=== PATIENT | male | born 1960 | race Caucasian/White ===

== ENCOUNTER 2018-07-03 13:11 | Emergency (ER) | payer MEDICARE ==
[2018-07-03 13:16] VITALS: BP 135/73; PULSE 69; RESP 18; TEMP 97.8
--- NOTE | 2018-07-03 14:06 | ED ---
General Adult HPI - General Chief complaint: Extremity Injury, Upper Stated complaint: Arm Pain Time Seen by Provider: 07/03/18 13:31 Source: patient Mode of arrival: ambulatory Limitations: no limitations - History of Present Illness Initial comments: Patient is a 57-year-old male who presents to the ER with complaints of right lower arm pain. He stated that he was carrying a bucket of rocks yesterday when he felt a pop and sudden pain in his right arm. He states that he takes oxycodone at home for back pain and that it has not been helping with his arm pain. He also complains of tingling and weakness in his right hand. Denies numbness. - Related Data Previous Rx's Medication Instructions Recorded Ibuprofen [Motrin] 600 mg PO Q6HR PRN #20 day 07/03/18 Allergies Allergy/AdvReac Type Severity Reaction Status Date / Time Sulfa (Sulfonamide Allergy Swelling Verified 07/03/18 13:16 Antibiotics) Review of Systems ROS Statement: Those systems with pertinent positive or pertinent negative responses have been documented in the HPI. ROS Other: All systems not noted in ROS Statement are negative. Past Medical History Past Medical History: Diabetes Mellitus, Hypertension Additional Past Medical History / Comment(s): chronic back pain History of Any Multi-Drug Resistant Organisms: None Reported Past Surgical History: Orthopedic Surgery Additional Past Surgical History / Comment(s): right knee surgery Past Psychological History: Anxiety, Depression Smoking Status: Former smoker Past Alcohol Use History: None Reported Past Drug Use History: None Reported General Exam - General Exam Comments Initial Comments: General: The patient is awake and alert, in no distress, and does not appear acutely ill. Neck: The neck is supple. Cardiovascular: There is a regular rate and rhythm. Radial pulses are 2+ bilaterally. Capillary refill of upper extremities less than 2 seconds bilaterally. Respiratory: Lungs are clear to auscultation, respirations are non-labored, breath sounds are equal. No wheezes, stridor, rales, or rhonchi. Musculoskeletal: There is a small bruise over the anterior aspect of the right lower arm; skin color is otherwise normal. There are no obvious deformities of the upper extremities. Right wrist ROM in flexion and extension slightly decreased compared to the left. 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 Sensation is intact. Neurological: A&O x 3. Coordination appears grossly intact. Speech is normal. Skin: Skin is warm and dry. Psychiatric: Normal mood and affect. Limitations: no limitations Course Vital Signs 07/03/18 13:13 Temperature 97.8 F Pulse Rate 69 Respiratory 18 Rate Blood Pressure 135/73 O2 Sat by Pulse 95 Oximetry Medical Decision Making - Medical Decision Making Patient presented with right forearm pain and tingling and weakness in the right hand. Injury is likely muscular or tendon related. It is unlikely that there is injury to the bone. This was discussed with the patient and the patient did not wish to have an x-ray. Patient advised to follow up with orthopedics within the next 2 days. Patient was given a prescription for ibuprofen. Disposition Clinical Impression: Forearm pain Disposition: HOME SELF-CARE Condition: Good Instructions: Arm Pain (ED) Additional Instructions: Follow-up with orthopedics in the next 2 days use ibuprofen as directed. Use ice and elevate arm as needed. Return to the emergency room for any further concerns. Prescriptions: Ibuprofen [Motrin] 600 mg PO Q6HR PRN #20 day PRN Reason: Pain Is patient prescribed a controlled substance at d/c from ED?: No Referrals: Elvin Hyde MD [Primary Care Provider] - 1-2 days Vin Han MD [STAFF PHYSICIAN] - 1-2 days Time of Disposition: 14:22
== END 2018-07-03 14:28 | disposition home or self-care (01) ==
LOC: EC 13:11
DX: S50.11XA Contusion of right forearm, initial encounter (principal); R20.2 Paresthesia of skin; R29.898 Other symptoms and signs involving the musculoskeletal system; Z87.891 Personal history of nicotine dependence; Z88.2 Allergy status to sulfonamides; X50.0XXA Overexertion from strenuous movement or load, initial encounter; Y92.009 Unspecified place in unspecified non-institutional (private) residence as the place of occurrence of the external cause
CPT/HCPCS: 99283

== ENCOUNTER 2018-12-16 11:10 | Emergency (ER) | payer MEDICARE ==
[2018-12-16 11:36] VITALS: TEMP 98.4
[2018-12-16] MEDS ORDERED: HYDROmorphone 1 MG/ML 1 ML SYRINGE IM STA (12:30)
--- NOTE | 2018-12-16 12:34 | ED ---
Fall HPI - General Chief Complaint: Fall Stated Complaint: fall/back pain Time Seen by Provider: 12/16/18 12:16 Source: patient, RN notes reviewed, old records reviewed Mode of arrival: ambulatory - History of Present Illness Initial Comments: Patient is 58-year-old male presents [place] today with chief complaint of back pain related to fall. Patient reports his history of chronic dental issues. Sees neurologist Dr. Arellano. He is on oxycodone 3 times a day. Patient states that yesterday while to Dr. Parsons was standing and fell. - Related Data Home Medications Medication Instructions Recorded Confirmed Amitriptyline HCl [Elavil] 50 mg PO BID 12/16/18 12/16/18 Aspirin EC [Ecotrin Low Dose] 81 mg PO DAILY 12/16/18 12/16/18 Atorvastatin [Lipitor] 20 mg PO HS 12/16/18 12/16/18 Cholecalciferol (Vitamin D3) 2,000 unit PO DAILY 12/16/18 12/16/18 [Vitamin D3] DULoxetine HCL [Cymbalta] 120 mg PO DAILY 12/16/18 12/16/18 Gabapentin 800 mg PO TID 12/16/18 12/16/18 Gemfibrozil [Lopid] 600 mg PO AC-BID 12/16/18 12/16/18 Insulin Detemir (Levemir) [Levemir] 35 unit SQ BID 12/16/18 12/16/18 Levothyroxine Sodium [Synthroid] 50 mcg PO DAILY 12/16/18 12/16/18 Pioglitazone [Actos] 30 mg PO DAILY 12/16/18 12/16/18 QUEtiapine [SEROquel] 100 mg PO BID 12/16/18 12/16/18 Sertraline [Zoloft] 100 mg PO BID 12/16/18 12/16/18 Spironolactone 100 mg PO DAILY 12/16/18 12/16/18 Tamsulosin [Flomax] 0.8 mg PO DAILY 12/16/18 12/16/18 Testosterone Cypionate 120 mg IM Q7D 12/16/18 12/16/18 [Depo-Testosterone] Umeclidinium Brm/Vilanterol Tr 1 puff INHALATION RT-DAILY 12/16/18 12/16/18 [Anoro Ellipta 62.5-25 Mcg INH] amLODIPine [Norvasc] 10 mg PO DAILY 12/16/18 12/16/18 cloNIDine HCL [Catapres] 0.1 mg PO TID 12/16/18 12/16/18 hydrALAZINE HCL [Apresoline] 25 mg PO QID 12/16/18 12/16/18 metFORMIN HCL 1,000 mg PO BID 12/16/18 12/16/18 oxyCODONE-APAP 10-325MG [Percocet 1 tab PO TID PRN 12/16/18 12/16/18 10-325 mg] Allergies Allergy/AdvReac Type Severity Reaction Status Date / Time Sulfa (Sulfonamide Allergy Swelling Verified 12/16/18 13:09 Antibiotics) Review of Systems ROS Statement: Those systems with pertinent positive or pertinent negative responses have been documented in the HPI. ROS Other: All systems not noted in ROS Statement are negative. Past Medical History Past Medical History: Diabetes Mellitus, Hypertension Additional Past Medical History / Comment(s): chronic back pain History of Any Multi-Drug Resistant Organisms: None Reported Past Surgical History: Orthopedic Surgery Additional Past Surgical History / Comment(s): right knee surgery Past Psychological History: Anxiety, Depression Smoking Status: Former smoker Past Alcohol Use History: None Reported Past Drug Use History: None Reported General Exam Limitations: no limitations General appearance: alert, in no apparent distress Head exam: Present: atraumatic, normocephalic, normal inspection Eye exam: Present: normal appearance, PERRL, EOMI. Absent: scleral icterus, conjunctival injection, periorbital swelling ENT exam: Present: normal exam, mucous membranes moist Neck exam: Present: normal inspection. Absent: tenderness, meningismus, lymphadenopathy Respiratory exam: Present: normal lung sounds bilaterally. Absent: respiratory distress, wheezes, rales, rhonchi, stridor Cardiovascular Exam: Present: regular rate, normal rhythm, normal heart sounds. Absent: systolic murmur, diastolic murmur, rubs, gallop, clicks GI/Abdominal exam: Present: soft, normal bowel sounds. Absent: distended, tenderness, guarding, rebound, rigid Extremities exam: Present: normal inspection, full ROM, normal capillary refill. Absent: tenderness, pedal edema, joint swelling, calf tenderness Back exam: Present: normal inspection Neurological exam: Present: alert, oriented X3, CN II-XII intact Course Vital Signs 12/16/18 11:33 Temperature 98.4 F Pulse Rate 65 Respiratory 18 Rate Blood Pressure 147/78 O2 Sat by Pulse 95 Oximetry Medical Decision Making - Lab Data Lab Results 12/16/18 Range/Units 14:00 Urine Color Light Yellow Urine Appearance Clear (Clear) Urine pH 6.0 (5.0-8.0) Ur Specific New Site 1.011 (1.001-1.035) Urine Protein Negative (Negative) Urine Glucose (UA) 4+ H (Negative) Urine Ketones Negative (Negative) Urine Blood Negative (Negative) Urine Nitrite Negative (Negative) Urine Bilirubin Negative (Negative) Urine Urobilinogen <2.0 (<2.0) mg/dL Ur Leukocyte Esterase Negative (Negative) Disposition Clinical Impression: Fall, Mechanical back pain Disposition: HOME SELF-CARE Condition: Good Instructions (If sedation given, give patient instructions): Back Pain (ED) Additional Instructions: Follow-up with PCP. Take medication as prescribed. Return to the emergency department if any alarming signs or symptoms occur. Is patient prescribed a controlled substance at d/c from ED?: No Referrals: Elvin Hyde MD [Primary Care Provider] - 1-2 days Time of Disposition: 14:41
[2018-12-16] MEDS ORDERED: HYDROmorphone 1 MG/ML 1 ML SYRINGE IVP STA ×2 (13:14→14:41)
--- NOTE | 2018-12-16 13:47 | XR ---
EXAMINATION TYPE: XR chest 2V DATE OF EXAM: 12/16/2018 COMPARISON: NONE HISTORY: Chest pain after fall injury. TECHNIQUE: Frontal and lateral views of the chest are obtained. FINDINGS: There is elevation and eventration of anterior aspect right hemidiaphragm noted. There is n o focal air space opacity, pleural effusion, or pneumothorax seen. The cardiac silhouette size is wi thin normal limits. Multilevel spurring in the thoracic spine is present. IMPRESSION: No acute cardiopulmonary process.
--- NOTE | 2018-12-16 14:00 | XR ---
EXAMINATION TYPE: XR lumbar spine 2 or 3V DATE OF EXAM: 12/16/2018 CLINICAL HISTORY: Low back pain after fall injury TECHNIQUE: Frontal and lateral images of the lumbar spine are obtained. COMPARISON: None FINDINGS: There are 5 lumbar type vertebral bodies identified. The lumbar spine shows satisfactory alignment without evidence of acute fracture or dislocation. Vertebral body heights and disk space he ights are within normal limits. Mild multilevel anterior and lateral spurring is present. Mild vascul ar calcification overlying abdominal aorta is noted. IMPRESSION: No acute fracture or dislocation is seen in the lumbar spine.
--- NOTE | 2018-12-16 14:01 | XR ---
EXAMINATION TYPE: XR thoracic spine 2V DATE OF EXAM: 12/16/2018 CLINICAL HISTORY: Fall with mid back pain. TECHNIQUE: Frontal, lateral, and swimmer's view of thoracic spine are obtained. COMPARISON: None. FINDINGS: Thoracic spine show satisfactory alignment without evidence of acute fracture or dislocatio n. Vertebral body heights and disc space heights are preserved. Moderate multilevel anterior and lat eral spurring most prominent mid to lower thoracic spine is noted. Visualized ribs are unremarkable b ilaterally. IMPRESSION: No acute fracture or dislocation is seen in the thoracic spine.
[2018-12-16 14:35] LABS: Appearance,Urine Clear (Clear); Bilirubin,Urine Negative (Negative); Blood,Urine Negative (Negative); Color,Urine Light Yellow; Glucose,Urine (UA) 4+ (Negative); Ketones,Urine Negative (Negative); Leukocyte Esterase,Urine Negative (Negative); Nitrite,Urine Negative (Negative); Protein,Urine Negative (Negative); Specific Gravity,Urine 1.011 (1.001-1.035); Urobilinogen,Urine <2.0 mg/dL (<2.0)
[2018-12-16 14:59] VITALS: BP 167/89; PULSE 59; RESP 16
== END 2018-12-16 14:55 | disposition home or self-care (01) ==
LOC: EC 11:10
DX: M54.9 Dorsalgia, unspecified (principal); E11.9 Type 2 diabetes mellitus without complications; I10 Essential (primary) hypertension; F41.9 Anxiety disorder, unspecified; F32.9 Major depressive disorder, single episode, unspecified; Z87.891 Personal history of nicotine dependence; Z98.890 Other specified postprocedural states; Z79.4 Long term (current) use of insulin; Z79.82 Long term (current) use of aspirin; Z79.890 Hormone replacement therapy; Z79.899 Other long term (current) drug therapy; Z88.2 Allergy status to sulfonamides; W19.XXXA Unspecified fall, initial encounter; Y92.89 Other specified places as the place of occurrence of the external cause
CPT/HCPCS: 81003; 72070; 72100; 71046; 99284; 96374; 96376; J1170

== ENCOUNTER 2019-07-28 02:21 | Emergency (ER) | payer MEDICARE ==
[2019-07-28 02:29] VITALS: TEMP 97.5
[2019-07-28] MEDS ORDERED: DIPH,PERTUS(ACELL)TETVAC-LF 0.5 ML VIAL IM ONE (02:58)
--- NOTE | 2019-07-28 03:19 | XR ---
EXAMINATION TYPE: XR nasal bone DATE OF EXAM: 07/28/2019 COMPARISON: NONE HISTORY: Fall. Pain. TECHNIQUE: 3 views FINDINGS: Bone appears intact. Maxillary spine is intact. There is intact orbital margins. There is normal aera tion of the paranasal sinuses. IMPRESSION: Normal nasal bone exam.
--- NOTE | 2019-07-28 03:25 | CT ---
EXAMINATION TYPE: CT brain wo con DATE OF EXAM: 07/28/2019 COMPARISON: None HISTORY: laceration to nose after fall. CT DLP: 1087.4 mGycm Automated exposure control for dose reduction was used. FINDINGS: Ventricles appear normal. There is no mass effect nor midline shift. There is no sign of intracranial hemorrhage. There is mild cerebral cortical atrophy. Calvarium is intact. There is some mucosal thic kening in the ethmoid air cells. Nasal bone that is visualized appears intact. IMPRESSION: MILD ATROPHY. NO ACUTE INTRACRANIAL ABNORMALITY. ETHMOID SINUSITIS.
[2019-07-28] MEDS ORDERED: OXYMETAZOLINE 0.05% NASL SPRAY 1 SPRAY BOTTLE NASAL STA (03:47)
[2019-07-28 04:09] VITALS: BP 125/58; PULSE 73; RESP 18
--- NOTE | 2019-07-28 04:36 | ED ---
Fall HPI - General Chief Complaint: Fall Stated Complaint: Fall,Head Injury Time Seen by Provider: 07/28/19 02:25 Source: patient Mode of arrival: wheelchair - History of Present Illness Initial Comments: This patient is 59-year-old man who presents to be evaluated after he had a fall. The patient was at home in his bathroom. He states that he was attempting to stand up and his foot slipped resulting in him falling and striking his nose against the rack. There is no loss consciousness. Patient does complain of headache and some nasal tenderness. He did not have epistaxis. He does state that he feels a little congested in the nose. No neck pain. MD Complaint: fall -: minutes(s) Fall From: standing When Fall Occurred: just prior to arrival Place Fall Occurred: home Loss of Consciousness: none Prolonged Down Time?: no Location: head, face Severity: moderate Context: tripped/slipped Associated Symptoms: headache - Related Data Home Medications Medication Instructions Recorded Confirmed Amitriptyline HCl [Elavil] 50 mg PO BID 12/16/18 07/28/19 Aspirin EC [Ecotrin Low Dose] 81 mg PO DAILY 12/16/18 07/28/19 Atorvastatin [Lipitor] 20 mg PO HS 12/16/18 07/28/19 Cholecalciferol (Vitamin D3) 2,000 unit PO DAILY 12/16/18 07/28/19 [Vitamin D3] DULoxetine HCL [Cymbalta] 120 mg PO DAILY 12/16/18 07/28/19 Gabapentin 800 mg PO TID 12/16/18 07/28/19 Gemfibrozil [Lopid] 600 mg PO AC-BID 12/16/18 07/28/19 Insulin Detemir (Levemir) [Levemir] 35 unit SQ BID 12/16/18 07/28/19 Levothyroxine Sodium [Synthroid] 50 mcg PO DAILY 12/16/18 07/28/19 Pioglitazone [Actos] 30 mg PO DAILY 12/16/18 07/28/19 QUEtiapine [SEROquel] 100 mg PO BID 12/16/18 07/28/19 Sertraline [Zoloft] 100 mg PO BID 12/16/18 07/28/19 Spironolactone 100 mg PO DAILY 12/16/18 07/28/19 Tamsulosin [Flomax] 0.8 mg PO DAILY 12/16/18 07/28/19 Testosterone Cypionate 120 mg IM Q7D 12/16/18 07/28/19 [Depo-Testosterone] Umeclidinium Brm/Vilanterol Tr 1 puff INHALATION RT-DAILY 12/16/18 07/28/19 [Anoro Ellipta 62.5-25 Mcg INH] amLODIPine [Norvasc] 10 mg PO DAILY 12/16/18 07/28/19 cloNIDine HCL [Catapres] 0.1 mg PO TID 12/16/18 07/28/19 hydrALAZINE HCL [Apresoline] 25 mg PO QID 12/16/18 07/28/19 metFORMIN HCL 1,000 mg PO BID 12/16/18 07/28/19 oxyCODONE-APAP 10-325MG [Percocet 1 tab PO TID PRN 12/16/18 07/28/19 10-325 mg] Allergies Allergy/AdvReac Type Severity Reaction Status Date / Time Sulfa (Sulfonamide Allergy Swelling Verified 12/16/18 13:09 Antibiotics) Review of Systems ROS Statement: Those systems with pertinent positive or pertinent negative responses have been documented in the HPI. ROS Other: All systems not noted in ROS Statement are negative. Constitutional: Denies: fever, chills Eyes: Denies: eye pain, vision change ENT: Reports: congestion. Denies: ear pain, throat pain, epistaxis Respiratory: Denies: cough, dyspnea Cardiovascular: Denies: chest pain, syncope Gastrointestinal: Denies: abdominal pain, vomiting Musculoskeletal: Denies: back pain Neurological: Denies: headache Hematological/Lymphatic: Denies: easy bleeding Past Medical History Past Medical History: Diabetes Mellitus, Hypertension Additional Past Medical History / Comment(s): chronic back pain History of Any Multi-Drug Resistant Organisms: None Reported Past Surgical History: Orthopedic Surgery Additional Past Surgical History / Comment(s): right knee surgery Past Psychological History: Anxiety, Depression Smoking Status: Former smoker Past Alcohol Use History: None Reported Past Drug Use History: None Reported General Exam Limitations: no limitations General appearance: alert, in no apparent distress Head exam: Present: normocephalic Eye exam: Present: normal appearance, PERRL, EOMI. Absent: scleral icterus, conjunctival injection, nystagmus ENT exam: Present: normal oropharynx, mucous membranes moist, TM's normal bilaterally, normal external ear exam, other (Patient has approximately 1.5 cm laceration to the bridge of the nose which is stellate.) Neck exam: Present: normal inspection, full ROM. Absent: tenderness Respiratory exam: Present: normal lung sounds bilaterally. Absent: respiratory distress, wheezes, rales, rhonchi, stridor Cardiovascular Exam: Present: regular rate, normal rhythm, normal heart sounds. Absent: systolic murmur, diastolic murmur, rubs, gallop GI/Abdominal exam: Present: soft. Absent: tenderness Extremities exam: Present: normal inspection, normal capillary refill. Absent: pedal edema, calf tenderness Back exam: Present: normal inspection. Absent: vertebral tenderness Neurological exam: Present: alert, oriented X3, CN II-XII intact. Absent: motor sensory deficit Skin exam: Present: warm, dry, normal color. Absent: rash Course Vital Signs 07/28/19 07/28/19 02:26 04:07 Temperature 97.5 F L Pulse Rate 64 73 Respiratory 20 18 Rate Blood Pressure 128/69 125/58 O2 Sat by Pulse 95 96 Oximetry Procedures - Laceration Laceration #1 Consent Obtained: verbal consent Indication: laceration Site: face Size (cm): 2 Description: stellate Depth: simple, single layer Anesthetic Used: lidocaine 1% Anesthesia Technique: local infiltration Type of Sutures: nylon Size of Sutures: 6-0 Number of Sutures: 2 Technique: simple, interrupted Patient Tolerated Procedure: well, no complications Disposition Clinical Impression: Fall, Facial laceration Disposition: HOME SELF-CARE Condition: Good Instructions (If sedation given, give patient instructions): Laceration (ED), Fall Prevention for Older Adults (ED) Is patient prescribed a controlled substance at d/c from ED?: No Referrals: Elvin Hyde MD [Primary Care Provider] - 1-2 days
[2019-07-28] MEDS ORDERED: LIDOCAINE 1% INJ 10MG/ML (20 ML MDV) SQ ONE (04:41)
== END 2019-07-28 05:04 | disposition home or self-care (01) ==
LOC: EC 02:21
DX: S01.21XA Laceration without foreign body of nose, initial encounter (principal); Z23 Encounter for immunization; I10 Essential (primary) hypertension; E11.9 Type 2 diabetes mellitus without complications; F41.9 Anxiety disorder, unspecified; F32.9 Major depressive disorder, single episode, unspecified; Z79.82 Long term (current) use of aspirin; Z79.4 Long term (current) use of insulin; Z79.890 Hormone replacement therapy; Z79.899 Other long term (current) drug therapy; Z88.2 Allergy status to sulfonamides; Z87.891 Personal history of nicotine dependence; W01.198A Fall on same level from slipping, tripping and stumbling with subsequent striking against other object, initial encounter
CPT/HCPCS: 70160; 70450; 90715; 99284; 90471; 12011; J2001

== ENCOUNTER 2019-12-17 14:25 | Emergency (ER) | payer MEDICARE ==
[2019-12-17] MEDS ORDERED: HYDROmorphone 1 MG/ML 1 ML SYRINGE IVP STA (14:31)
[2019-12-17 14:58] VITALS: RESP 18
--- NOTE | 2019-12-17 15:10 | ED ---
Lower Extremity Injury HPI - General Stated Complaint: Slip and fall/right knee injury Time Seen by Provider: 12/17/19 14:30 Source: patient, EMS, RN notes reviewed Mode of arrival: EMS Limitations: physical limitation - History of Present Illness Initial Comments: This a 59-year-old male presents emergency department via EMS chief complaint of right knee pain. Patient states that he was walking into [employer] states he went to work this feel states he twisted his knee falling to the ground. Patient complains of severe right knee pain. Denies any hip, ankle pain and also states that he has some increasing back pain which is his normal chronic issue. Patient denies any bowel bladder incontinence or retention. Denies any head injury no loss conscious. Patient was given fentanyl by EMS. - Related Data Home Medications Medication Instructions Recorded Confirmed Amitriptyline HCl [Elavil] 50 mg PO BID 12/16/18 07/28/19 Aspirin EC [Ecotrin Low Dose] 81 mg PO DAILY 12/16/18 07/28/19 Atorvastatin [Lipitor] 20 mg PO HS 12/16/18 07/28/19 Cholecalciferol (Vitamin D3) 2,000 unit PO DAILY 12/16/18 07/28/19 [Vitamin D3] DULoxetine HCL [Cymbalta] 120 mg PO DAILY 12/16/18 07/28/19 Gabapentin 800 mg PO TID 12/16/18 07/28/19 Gemfibrozil [Lopid] 600 mg PO AC-BID 12/16/18 07/28/19 Insulin Detemir (Levemir) [Levemir] 35 unit SQ BID 12/16/18 07/28/19 Levothyroxine Sodium [Synthroid] 50 mcg PO DAILY 12/16/18 07/28/19 Pioglitazone [Actos] 30 mg PO DAILY 12/16/18 07/28/19 QUEtiapine [SEROquel] 100 mg PO BID 12/16/18 07/28/19 Sertraline [Zoloft] 100 mg PO BID 12/16/18 07/28/19 Spironolactone 100 mg PO DAILY 12/16/18 07/28/19 Tamsulosin [Flomax] 0.8 mg PO DAILY 12/16/18 07/28/19 Testosterone Cypionate 120 mg IM Q7D 12/16/18 07/28/19 [Depo-Testosterone] Umeclidinium Brm/Vilanterol Tr 1 puff INHALATION RT-DAILY 12/16/18 07/28/19 [Anoro Ellipta 62.5-25 Mcg INH] amLODIPine [Norvasc] 10 mg PO DAILY 12/16/18 07/28/19 cloNIDine HCL [Catapres] 0.1 mg PO TID 12/16/18 07/28/19 hydrALAZINE HCL [Apresoline] 25 mg PO QID 12/16/18 07/28/19 metFORMIN HCL 1,000 mg PO BID 12/16/18 07/28/19 oxyCODONE-APAP 10-325MG [Percocet 1 tab PO TID PRN 12/16/18 07/28/19 10-325 mg] Previous Rx's Medication Instructions Recorded Cyclobenzaprine [Flexeril] 10 mg PO TID PRN #15 tab 12/17/19 Allergies Allergy/AdvReac Type Severity Reaction Status Date / Time Sulfa (Sulfonamide Allergy Swelling Verified 12/17/19 14:36 Antibiotics) Review of Systems ROS Statement: Those systems with pertinent positive or pertinent negative responses have been documented in the HPI. ROS Other: All systems not noted in ROS Statement are negative. Past Medical History Past Medical History: Diabetes Mellitus, Hypertension Additional Past Medical History / Comment(s): chronic back pain History of Any Multi-Drug Resistant Organisms: None Reported Past Surgical History: Orthopedic Surgery Additional Past Surgical History / Comment(s): right knee surgery Past Psychological History: Anxiety, Depression Smoking Status: Former smoker Past Alcohol Use History: None Reported Past Drug Use History: None Reported General Exam Limitations: no limitations General appearance: alert, in no apparent distress Head exam: Present: atraumatic, normocephalic, normal inspection Eye exam: Present: normal appearance, PERRL, EOMI. Absent: scleral icterus, conjunctival injection, periorbital swelling Neck exam: Present: normal inspection. Absent: tenderness, meningismus, lymphadenopathy Respiratory exam: Present: normal lung sounds bilaterally. Absent: respiratory distress, wheezes, rales, rhonchi, stridor Cardiovascular Exam: Present: regular rate, normal rhythm, normal heart sounds. Absent: systolic murmur, diastolic murmur, rubs, gallop, clicks Extremities exam: Present: other (Right knee there is mild swelling, limited range of motion secondary to pain is leg is neurovascularly intact there is mild tenderness to anterior surface. There is no hip or ankle tenderness.) Neurological exam: Present: alert, oriented X3, CN II-XII intact Skin exam: Present: warm, dry, intact, normal color. Absent: rash Course Vital Signs 12/17/19 14:32 Temperature 97.8 F Pulse Rate 63 Respiratory 18 Rate Blood Pressure 134/71 O2 Sat by Pulse 94 L Oximetry Medical Decision Making - Medical Decision Making X-rays are negative for acute fracture there is a joint effusion noted on the right. Patient was placed in knee immobilizer follow-up with orthopedics return parameters were discussed. She requested follow-up with [facility]. Disposition Clinical Impression: Right knee sprain, Injury of ligament of right knee Disposition: HOME SELF-CARE Condition: Stable Instructions (If sedation given, give patient instructions): Knee Sprain (ED) Additional Instructions: Please return to the Emergency Department if symptoms worsen or any other concerns. Prescriptions: Cyclobenzaprine [Flexeril] 10 mg PO TID PRN #15 tab PRN Reason: Muscle Spasm Is patient prescribed a controlled substance at d/c from ED?: No Referrals: Elvin Hyde MD [Primary Care Provider] - 1-2 days Dakota Ferro MD [STAFF PHYSICIAN] - 1-2 days Time of Disposition: 16:24
[2019-12-17] MEDS ORDERED: HYDROmorphone 0.5 MG/0.5 ML SYRINGE IVP STA (15:44)
[2019-12-17] MEDS ORDERED: ORPHENADRINE 30 MG/ML 2 ML VIAL IVP STA (15:44)
--- NOTE | 2019-12-17 15:51 | XR ---
Right knee HISTORY: Trauma and pain 3 views of the right knee Bone mineralization, joint spaces and alignment are maintained. There is soft tissue swelling present . Enthesophyte present at the insertion of the quadriceps tendon. Suprapatellar increased density sug gests joint effusion. Vascular calcifications noted incidentally. Spurring present at the posterior p atella. IMPRESSION: No fracture or dislocation. Joint effusion. Mild osteoarthritis.
[2019-12-17 16:34] VITALS: BP 130/76; PULSE 66; TEMP 98
== END 2019-12-17 16:35 | disposition home or self-care (01) ==
LOC: EC 14:25
DX: S83.91XA Sprain of unspecified site of right knee, initial encounter (principal); M54.9 Dorsalgia, unspecified; E11.9 Type 2 diabetes mellitus without complications; I10 Essential (primary) hypertension; G89.29 Other chronic pain; F32.9 Major depressive disorder, single episode, unspecified; F41.9 Anxiety disorder, unspecified; Z87.891 Personal history of nicotine dependence; Z88.2 Allergy status to sulfonamides; Z79.4 Long term (current) use of insulin; Z79.82 Long term (current) use of aspirin; Z79.890 Hormone replacement therapy; Z79.899 Other long term (current) drug therapy; Z98.890 Other specified postprocedural states; W01.0XXA Fall on same level from slipping, tripping and stumbling without subsequent striking against object, initial encounter; Y93.01 Activity, walking, marching and hiking; Y92.89 Other specified places as the place of occurrence of the external cause
CPT/HCPCS: 73562; 99284; 96374; 96375; 96376; L1830; J2360; J1170 ×2

== ENCOUNTER → 2020-01-06 | Outpatient (CLI) | payer MEDICARE ==
--- NOTE | 2020-01-06 11:32 | MR ---
EXAMINATION TYPE: MR knee RT wo con DATE OF EXAM: 01/06/2020 COMPARISON: Left knee x-ray December 29, 2019. HISTORY: Rt knee pain S/P fall 3 weeks ago TECHNIQUE: Multiplanar, multisequence images of the knee is performed without IV contrast. FINDINGS: MEDIAL MENISCUS: Medial extrusion medial meniscus. Anterior horn is intact without tear. Posterior ho rn is truncated with abnormal signal along superior articular surface and extending into the central body. LATERAL MENISCUS: Anterior horn is intact without tear. Irregular oblique signal posterior horn exten ds to articular surface sagittal image 25. CRUCIATE LIGAMENTS: The anterior and posterior cruciate ligaments are intact and unremarkable. COLLATERAL LIGAMENTS: The medial collateral ligament and lateral collateral ligament complex are inta ct. Mild fluid signal surrounds medial collateral ligament complex. EXTENSOR MECHANISM: Visualized quadriceps and patellar tendons are intact. Focal tendinosis distal qu adriceps tendon with increased signal noted. EFFUSION: There is moderate to large size suprapatellar joint effusion. POPLITEAL CYST: No popliteal/valencia cyst. TRICOMPARTMENT SPACES: Mild to moderate tricompartment joint space loss with mild to moderate spurrin g greatest medial tibiofemoral compartment read CARTILAGE: Some chondromalacia patella with cartilaginous loss along inferior aspect of the posterior patella. Some cartilaginous thinning medial tibial femoral compartment. BONE MARROW SIGNAL: Partial visualization of heterogeneous geographic area of diminished T1 and incre ased T2 signal distal femoral metadiaphysis suspected right marrow reconversion. OTHER: No additional significant abnormality is appreciated. IMPRESSION: 1. Complex full-thickness tear posterior horn of medial meniscus extending into the central body. 2. At least intrasubstance but suspected Oblique full-thickness tear posterior horn lateral meniscus. 3. Fairly moderate tricompartment degenerative changes greatest medial tibiofemoral compartment as de tailed above. 4. Moderate to large-sized suprapatellar joint effusion. 5. Focal tendinosis distal quadriceps tendon just prior to superior patellar attachment. 6. Probable red marrow reconversion. Correlate clinically.
== END | disposition home or self-care (01) ==
LOC: RADMRIMAIN 10:33
PROVIDERS: ATTEND Orthopaedic Surgery
DX: M17.11 Unilateral primary osteoarthritis, right knee (principal); S83.231A Complex tear of medial meniscus, current injury, right knee, initial encounter; M67.863 Other specified disorders of tendon, right knee

== ENCOUNTER → 2020-04-01 | Outpatient (CLI) | payer MEDICARE ==
--- NOTE | 2020-04-01 14:46 | MR ---
EXAMINATION TYPE: MR knee LT wo con DATE OF EXAM: 04/01/2020 COMPARISON: None HISTORY: Chronic Severe Left Knee Pain TECHNIQUE: Multiplanar, multisequence imaging of the left knee is performed without IV contrast. FINDINGS: MEDIAL MENISCUS: Medial meniscus is diminished in size. There is increased signal within the anterior and posterior horns. The posterior horn is oblique signal medications with the inferior articular nunez rface compatible with a tear. There is a suggestion of a radial tear near the midline. LATERAL MENISCUS: There is some increased signal within the anterior horn of the lateral meniscus. Ty pe I tear without communication with an articular surface may be present. CRUCIATE LIGAMENTS: The anterior and posterior cruciate ligaments are intact and unremarkable. COLLATERAL LIGAMENTS: The medial collateral ligament and lateral collateral ligament complex are inta ct and unremarkable. EXTENSOR MECHANISM: Visualized quadriceps and patellar tendons are intact. EFFUSION: There is a small to moderate joint effusion POPLITEAL CYST: No popliteal/valencia cyst. TRICOMPARTMENT SPACES: There is narrowing of the medial compartment joint space. There is some mild p reservation of the lateral compartment joint space. Patellofemoral region appears normal CARTILAGE: Correlate for chondromalacia. There appears to be a defect in the midportion of the patell a. There is narrowing of the medial lateral compartment articular cartilage. BONE MARROW SIGNAL: There is signal change within the metadiaphyseal distal femur which is hypointens e on T1 and hyperintense on T2-weighted sequences. This has a somewhat irregular border. Plain film c orrelation is recommended. OTHER: No additional significant abnormality is appreciated. IMPRESSION: 1. Degenerative changes and a complex tear of the posterior horn medial meniscus. Milder degenerative changes and tears of the anterior horn medial meniscus and anterior horn lateral meniscus may be pre sent. 2. Small to moderate joint effusion. 3. Osteoarthritic degenerative change. 4. Consider chondromalacia within the differential. 5. Abnormal appearing signal within the distal metaphyseal femur. Plain film correlation is recommend ed.
== END | disposition home or self-care (01) ==
LOC: RADMRIMAIN 11:03
PROVIDERS: ATTEND Orthopaedic Surgery
DX: S83.242A Other tear of medial meniscus, current injury, left knee, initial encounter (principal); M17.12 Unilateral primary osteoarthritis, left knee; R93.7 Abnormal findings on diagnostic imaging of other parts of musculoskeletal system

== ENCOUNTER 2020-04-09 09:29 | Day surgery (SDC) | payer MEDICARE ==
--- NOTE | 2020-04-08 19:36 | HP ---
HISTORY AND PHYSICAL CHIEF COMPLAINT: Left knee pain. HISTORY OF PRESENT ILLNESS: This patient is a 59-year-old gentleman who presents with progressive left knee pain and mechanical symptoms for the past 6 months. He has tried medications in addition to an injection, without much relief. He notes he is walking with a cane. He notes intermittent catching and giving way. He has had two previous arthroscopies 12 to 14 years ago. PAST MEDICAL HISTORY: Past medical history is significant for hypertension, heart disease, non-insulin- dependent diabetes. CURRENT MEDICATIONS: Amitriptyline, amlodipine, aspirin, atorvastatin, clonidine, hydralazine, levothyroxine, metformin, Percocet. ALLERGIES: SULFA. FAMILY HISTORY: Noncontributory. REVIEW OF SYSTEMS: Sixteen-point review of systems otherwise reviewed and noncontributory. PHYSICAL EXAMINATION: On examination, the patient is approximately 5 feet 7 inches, 275 pounds of endomorphic habitus. HEENT exam is nonfocal. NECK: Supple. He has painless passive motion of his left hip. [id number] is negative. Active motion left knee minus 10 to 105 degrees of flexion. He has a mild effusion. He is tender about the medial joint line. Collaterals are stable. Fernie is negative. Keely's with medial pain. His distal neurovascular appears intact to the left lower extremity. RADIOGRAPHS: MRI report for the left knee shows evidence of a posteromedial meniscal tear along with degenerative changes involving the medial compartment. IMPRESSION: 1. Left knee symptomatic medial meniscal tear. 2. Left knee moderate medial compartment osteoarthrosis. 3. Obesity. RECOMMENDATIONS: I talked to the patient at length regarding his condition and treatment options. He remains quite symptomatic despite previous conservative measures. After thorough discussion, he opts to proceed with surgery. The plan is to proceed with arthroscopy of the left knee with probable partial medial meniscectomy. We will likely perform that as an outpatient procedure. Risks and benefits were discussed at length in layman's terms. The patient underwent preoperative cardiac evaluation. MMODL / IJN: [id number] /
[~2020-04-09 09:29] MED LIST: DEXAMETHASONE SOD PHOSPHATE 10 MG/ML 1 ML VIAL IV ONE; HYDROmorphone 0.5 MG/0.5 ML SYRINGE IVP PRN; LACTATED RINGERS 1,000 ML IV SCH; MIDAZOLAM 2 MG/2 ML VIAL IV PRN; ONDANSETRON 4 MG/2 ML VIAL IVP ONE; SCOPOLAMINE 1.5MG/72HR PATCH TRANSDERM ONE
[2020-04-09] MEDS ORDERED: ceFAZolin 3 GM in SODIUM CHLORIDE 0.9% 100 ML IVPB ONE (10:14)
[2020-04-09 10:26] LABS: Glucose,Whole Blood 99 mg/dL (75-99)
[2020-04-09] MEDS: fentaNYL (PF) 50 MCG/ML 2 ML AMP IV ONE ×2 (10:52→13:06)
[2020-04-09] MEDS ORDERED: fentaNYL (PF) 50 MCG/ML 2 ML AMP IV ONE (11:15)
[2020-04-09] MEDS ORDERED: MIDAZOLAM 2 MG/2 ML VIAL ONE (11:17)
[2020-04-09] MEDS ORDERED: LIDOCAINE 1% INJ 10MG/ML (20 ML MDV) ONE (11:17)
[2020-04-09] MEDS ORDERED: SUCCINYLCHOLINE CHLORIDE 100 MG/5 ML SYR IV ONE (11:17)
[2020-04-09] MEDS ORDERED: fentaNYL (PF) 50 MCG/ML 2 ML AMP ONE (11:17)
[2020-04-09] MEDS ORDERED: HYDROmorphone (PF) 1 MG/ML ONE (11:17)
[2020-04-09] MEDS ORDERED: ALBUTEROL INHALER 60 PUFF/8 GM INHALER (MHU) INHALATION ONE (11:17)
[2020-04-09] MEDS ORDERED: ESMOLOL 100 MG/10 ML VIAL ONE (11:17)
[2020-04-09] MEDS ORDERED: PROPOFOL 10 MG/ML 20 ML VIAL IV ONE (11:17)
[2020-04-09] MEDS ORDERED: EPINEPHrine (PF) 1 ML in SODIUM CHLORIDE 0.9% IRRIGATIO 3,000 ML IRRIGATION ONE ×4 (11:45)
--- NOTE | 2020-04-09 12:27 | P.OP ---
Date of Procedure: 04/09/20 Preoperative Diagnosis: Right knee internal derangement Postoperative Diagnosis: Right knee posterior medial meniscal tear/posterior lateral meniscal tear Procedure(s) Performed: Right knee arthroscopic partial medial and lateral meniscectomy Anesthesia: DANUTA Surgeon: Dakota Ferro Estimated Blood Loss (ml): 10 Pathology: none sent Condition: stable Disposition: PACU Indications for Procedure: The patient's 59-year-old male who presents after injuring his right knee recently twisting it. Upon evaluation he is noted of evidence of a symptomatic medial meniscal tear. A discussion of the risks and benefits of operative intervention versus continued conservative measures. He opted to proceed with surgery. Operative risks to include infection, neurovascular injury, development of blood clots, possible incomplete resolution of symptoms, possible worsening symptoms and need for subsequent procedures was discussed. Operative Findings: As below Description of Procedure: The patient was brought to the operating room, and after induction of general anesthesia examined the right knee. Collaterals were stable, Fernie was negative, and posterior drawer was negative. The right lower extremity was prepped and draped in a normal fashion. A superior lateral portal was made through a 3 mm skin incision superior and lateral to the patella. This was used for outflow. A lateral portal was made through a 5 mm vertical skin incision lateral to the patella tendon above the joint line. Diagnostic arthroscopy was performed. On inspection of the medial compartment, a complex tear involving the posterior horn of the medial meniscus in the white-red junction was noted. This was debrided back to stable base with straight baskets and a motorized shaver. A corresponding grade 2-3 chondral changes were noted diffusely in the medial compartment. On inspection of the notch, the anterior cruciate ligament appeared to be intact. On inspection of the lateral compartment, a radial tear involving the middle to posterior one third was noted in the white-white junction. This was debrided back to stable base with a motorized shaver. On inspection of the patellofemoral articulation, there was chondral fibrillation however no loose chondral fragments.. The gutters were clear debris. The knee was then thoroughly irrigated. The portals were closed with Steri-Strips. A sterile dressing was applied in addition to a compression stocking. The patient was awoken from general anesthesia and transferred to recovery room in good condition. Blood loss was estimated at 10 mL. No complications were incurred.
[2020-04-09] MEDS ORDERED: HYDROmorphone 1 MG/ML 1 ML SYRINGE IVP ONE ×5 (12:37→12:51)
[2020-04-09 12:40] VITALS: TEMP 97.5
[2020-04-09 12:57] LABS: Glucose,Whole Blood 139 mg/dL (75-99)
[2020-04-09] MEDS ORDERED: oxyCODONE-APAP 7.5-325MG 1 EACH TAB PO ONE (13:40)
[2020-04-09 14:19] VITALS: BP 158/79; PULSE 70; RESP 16
--- NOTE | 2020-04-13 08:40 | CDI ---
Outpatient Documentation Clarification Form Date: 04/13/20 CDS/Pilot Manager Name: Bia Segundo Phone: If any questions, call Halina Shi Ship Mate at [phone] Patient Name: Harlan Regan Admit Date: 04/09/20 Discharge Date: 04/09/20 ATTENTION: The [facility] Coding Staff appreciate your assistance in clarifying documentation. Please respond to the clarification below the line at the bottom and electronically sign. The [facility] Coding staff will review the response and follow-up if needed. Please note: Queries are made part of the Legal Health Record. If you have any questions, please contact the Ship Mate. Dear Dr. Ferro, Please provide clarification as to the laterally of the diagnosis and procedure. The H&P states left knee and the Procedure note states right knee. Please clarify. Thank you for your kind consideration. the right knee was the correct knee. I brought an H&P from the office that they were supposed to scan in. If you need another copy, please, and office for an H&P for the right knee. BOB
== END 2020-04-09 14:27 | disposition home or self-care (01) ==
LOC: OR 09:29
PROVIDERS: ATTEND Orthopaedic Surgery
DX: S83.241A Other tear of medial meniscus, current injury, right knee, initial encounter (principal); S83.281A Other tear of lateral meniscus, current injury, right knee, initial encounter; X58.XXXA Exposure to other specified factors, initial encounter; I11.9 Hypertensive heart disease without heart failure; E11.9 Type 2 diabetes mellitus without complications; E03.9 Hypothyroidism, unspecified; E78.2 Mixed hyperlipidemia; J44.9 Chronic obstructive pulmonary disease, unspecified; Z87.891 Personal history of nicotine dependence; E29.1 Testicular hypofunction; E66.9 Obesity, unspecified; Z68.41 Body mass index [BMI] 40.0-44.9, adult; M17.12 Unilateral primary osteoarthritis, left knee; Z98.890 Other specified postprocedural states; Z79.82 Long term (current) use of aspirin; Z79.4 Long term (current) use of insulin; Z79.890 Hormone replacement therapy; Z79.891 Long term (current) use of opiate analgesic; Z79.899 Other long term (current) drug therapy; Z88.2 Allergy status to sulfonamides; Z88.8 Allergy status to other drugs, medicaments and biological substances
CPT/HCPCS: 29880; J2250; J1100; J0690; J2405; J0171; J2001; J3010; J1170; J0330; J2704

== ENCOUNTER → 2020-06-09 | Outpatient (CLI) | payer MEDICARE ==
--- NOTE | 2020-06-09 13:27 | MR ---
EXAMINATION TYPE: MR femur/thigh LT wo/w con DATE OF EXAM: 06/09/2020 COMPARISON: MRI of the left knee 04/01/2020 and plain film radiography. HISTORY: Neoplasm of uncertain behavior of bone CONTRAST: Standard multiplanar, multisequence MRI departmental protocol utilizing 13.5 mL intravenous Gadavist gadolinium contrast. FINDINGS: Bone marrow signal is homogeneous. I see evidence for osseous lesion or bony destructive process. The re is no evidence for fracture or dislocation. No enhancing lesions are seen. No soft tissue mass or fluid collection evident. IMPRESSION: No distinct lesion is appreciated.
== END | disposition home or self-care (01) ==
LOC: RADMRIMAIN 10:19
PROVIDERS: ATTEND Surgery Surgical Oncology
DX: D48.0 Neoplasm of uncertain behavior of bone and articular cartilage (principal)
CPT/HCPCS: 73720; A9585

== ENCOUNTER → 2020-07-23 | Outpatient (CLI) | payer MEDICARE ==
[2020-07-23 15:31] LABS: Basophils # (A) 0.1 k/uL (0-0.2); Basophils % (A) 1 %; Eosinophils # (A) 0.4 k/uL (0-0.7); Eosinophils % (A) 6 %; HCT 52.9 % (39.0-53.0); Lymphocytes % (A) 41 %; MCH 27.6 pg (25.0-35.0); MCV 86.2 fL (80.0-100.0); Monocytes # (A) 0.4 k/uL (0-1.0); Monocytes % (A) 6 %; Neutrophils # (A) 3.3 k/uL (1.3-7.7); Neutrophils % (A) 45 %; Platelet Count 181 k/uL (150-450); RBC 6.14 m/uL (4.30-5.90); RDW 14.8 % (11.5-15.5); WBC 7.3 k/uL (3.8-10.6)
[2020-07-23 15:41] LABS: Potassium 4.4 mmol/L (3.5-5.1)
== END | disposition home or self-care (01) ==
LOC: LABPAT 13:40
PROVIDERS: ATTEND Orthopaedic Surgery
DX: Z01.818 Encounter for other preprocedural examination (principal); M23.92 Unspecified internal derangement of left knee
CPT/HCPCS: 80051; 85025

== ENCOUNTER 2020-07-25 18:28 | Inpatient (IN) | payer MEDICARE ==
[2020-07-25] MEDS ORDERED: MECLIZINE 12.5 MG TAB PO STA (18:44)
[2020-07-25] MEDS ORDERED: SODIUM CHLORIDE 0.9% 500 ML 500 ML IV STA (18:44)
[2020-07-25 18:58] LABS: Basophils # (A) 0.1 k/uL (0-0.2); Basophils % (A) 1 %; Eosinophils # (A) 0.3 k/uL (0-0.7); Eosinophils % (A) 3 %; HCT 47.6 % (39.0-53.0); HGB 15.4 gm/dL (13.0-17.5); Lymphocytes # (A) 1.9 k/uL (1.0-4.8); Lymphocytes % (A) 17 %; MCH 27.6 pg (25.0-35.0); MCHC 32.4 g/dL (31.0-37.0); Mean Platelet Volume 7.7; Monocytes # (A) 0.7 k/uL (0-1.0); Monocytes % (A) 7 %; Neutrophils # (A) 7.8 k/uL (1.3-7.7); Neutrophils % (A) 72 %; Platelet Count 215 k/uL (150-450); RDW 14.9 % (11.5-15.5); WBC 10.9 k/uL (3.8-10.6)
[2020-07-25 19:07] LABS: INR 0.9 (<1.2); Prothrombin Time 9.8 sec (9.0-12.0)
[2020-07-25] MEDS: MORPHINE SULFATE 4 MG/ML SYRINGE IVP STA ×2 (19:08→23:05)
[2020-07-25 19:14] LABS: Albumin 4.5 g/dL (3.5-5.0); Calcium 9.4 mg/dL (8.4-10.2); Magnesium 2.8 mg/dL (1.6-2.3); Potassium 4.7 mmol/L (3.5-5.1); Total Bilirubin 1.8 mg/dL (0.2-1.3)
--- NOTE | 2020-07-25 19:15 | ED ---
Dizziness HPI - General Chief Complaint: Dizziness Stated Complaint: poss STEMI Time Seen by Provider: 07/25/20 18:40 Source: EMS Mode of arrival: EMS Limitations: no limitations - History of Present Illness Initial Comments: Patient is a 60-year-old male with past medical history of diabetes, hypertension, hyperlipidemia, chronic back pain on narcotics who presents to the emergency department with multiple complaints. Patient states that he woke up at 5 AM this morning and felt "off." He went into the kitchen and couldn't remember if he took his medications. He states he laid back down and woke up around 11:30 AM. Does not sleep this lady. States that he was feeling dizzy. Took his medications once again around 11:30 when he woke up because he couldn't remember if he took him. He then began having a reflux sensation in his chest. Because the symptoms he decided to call EMS. Upon transport they completed an EKG which looked concerning for ST segment elevation. Patient denies any chest pain or pressure. No shortness of breath. No nausea, vomiting or diaphoresis. Denies any headaches or visual changes. No unilateral numbness or weakness. No recent fevers or chills. Denies cough. No recent medication changes. He does admit to chronic constipation with worsening symptoms over the past 4 days. He takes ducal Lasix and lactulose normally for his constipation. Also reports to taking mag citrate and still has been unsuccessful. Denies any abdominal pain. He is on Percocet for chronic back pain. No other alleviating, precipitating or modifying factors - Related Data Home Medications Medication Instructions Recorded Confirmed Amitriptyline HCl [Elavil] 50 mg PO BID 12/16/18 07/25/20 Atorvastatin [Lipitor] 20 mg PO DAILY 12/16/18 07/25/20 DULoxetine HCL [Cymbalta] 60 mg PO HS 12/16/18 07/25/20 Levothyroxine Sodium [Synthroid] 50 mcg PO DAILY 12/16/18 07/25/20 Sertraline [Zoloft] 200 mg PO DAILY 12/16/18 07/25/20 Testosterone Cypionate 120 mg IM WE 12/16/18 07/25/20 [Depo-Testosterone] amLODIPine [Norvasc] 10 mg PO DAILY 12/16/18 07/25/20 hydrALAZINE HCL [Apresoline] 50 mg PO BID 12/16/18 07/25/20 metFORMIN HCL 1,000 mg PO BID 12/16/18 07/25/20 oxyCODONE-APAP 10-325MG [Percocet 1 tab PO TID 12/16/18 07/25/20 10-325 mg] Gabapentin 600 mg PO TID 07/23/20 07/25/20 Insulin Degludec [Tresiba] 70 units SQ HS 07/23/20 07/25/20 Ibuprofen [Motrin] 800 mg PO BID PRN 07/25/20 07/25/20 Lactulose 10 gm PO BID PRN 07/25/20 07/25/20 Pioglitazone [Actos] 15 mg PO DAILY 07/25/20 07/25/20 cloNIDine HCL [Catapres] 0.2 mg PO BID 07/25/20 07/25/20 lisinopriL [Zestril] 10 mg PO DAILY 07/25/20 07/25/20 Allergies Allergy/AdvReac Type Severity Reaction Status Date / Time Sulfa (Sulfonamide Allergy Swelling Verified 07/25/20 22:01 Antibiotics) Review of Systems ROS Statement: Those systems with pertinent positive or pertinent negative responses have been documented in the HPI. ROS Other: All systems not noted in ROS Statement are negative. Past Medical History Past Medical History: Diabetes Mellitus, Hyperlipidemia, Hypertension, Thyroid Disorder Additional Past Medical History / Comment(s): chronic back pain History of Any Multi-Drug Resistant Organisms: None Reported Past Surgical History: Orthopedic Surgery Additional Past Surgical History / Comment(s): right knee surgery Past Anesthesia/Blood Transfusion Reactions: No Reported Reaction Past Psychological History: Anxiety, Depression Smoking Status: Former smoker - Past Family History Mother Family Medical History: Cancer General Exam Limitations: no limitations General appearance: alert, in no apparent distress, obese Head exam: Present: atraumatic, normocephalic, normal inspection Eye exam: Present: normal appearance, PERRL, EOMI. Absent: scleral icterus, conjunctival injection, periorbital swelling ENT exam: Present: normal exam, mucous membranes moist Neck exam: Present: normal inspection. Absent: tenderness, meningismus, lymphadenopathy Cardiovascular Exam: Present: regular rate, normal rhythm, normal heart sounds. Absent: systolic murmur, diastolic murmur, rubs, gallop, clicks GI/Abdominal exam: Present: soft, normal bowel sounds. Absent: distended, tenderness, guarding, rebound, rigid Extremities exam: Present: normal inspection, full ROM, normal capillary refill. Absent: tenderness, pedal edema, joint swelling, calf tenderness Neurological exam: Present: alert, oriented X3, CN II-XII intact Psychiatric exam: Present: normal affect, normal mood Skin exam: Present: warm, dry, intact, normal color. Absent: rash Course Vital Signs 07/25/20 07/25/20 07/25/20 18:40 18:42 18:47 Temperature 98.6 F Pulse Rate 54 L Pulse Rate [ 52 L Electrotype Molder ] Respiratory 20 Rate Blood Pressure 111/50 O2 Sat by Pulse 95 Oximetry 07/25/20 07/25/20 07/25/20 19:00 20:00 21:00 Temperature 98.1 F Pulse Rate 51 L 54 L 52 L Pulse Rate [ Electrotype Molder ] Respiratory 18 20 18 Rate Blood Pressure 105/81 108/84 109/83 O2 Sat by Pulse 98 100 99 Oximetry 07/25/20 22:00 Temperature Pulse Rate 52 L Pulse Rate [ Electrotype Molder ] Respiratory 18 Rate Blood Pressure 105/57 O2 Sat by Pulse 98 Oximetry EKG Findings - EKG Comments: EKG Findings:: EKG at 1836 demonstrates a sinus bradycardia with a ventricular rate of 56. MA interval 278. QRS 120. QTC of 395. No acute ST segment elevations or depressions concerning for ischemia or infarction. Baseline artifact and 1 and 3. EKG at 1856 demonstrates sinus bradycardia with first-degree block. Rate of 55. PO2 84. QRS 118. QTC of 394. No acute ST segment elevations or depressions. Right-sided bundle branch block. Medical Decision Making - Medical Decision Making Upon arrival the patient is probably placed into trauma bay 1. A thorough history and physical exam is performed. 12-lead EKG was performed which does not demonstrate any signs of acute ST segment elevation. Repeat EKG was performed after 15 minutes which does not demonstrate any change. Peripheral IV is established. Laboratory studies were conducted. Laboratory studies are remarkable for a sodium of 125. Creatinine is 2.6. Magnesium 2.8. Troponin is negative. CT brain demonstrates cerebral atrophy with no acute intracranial abnormality. No change. Sinusitis increased compared old. Chest x-ray demonstrates no active cardiopulmonary disease. Patient is requesting pain medications and their first informal grams of morphine. 500 mL bolus is ordered. Patient will be admitted for serial troponins, cardiology and nephrology evaluation. Patient agreed to this. He is awaiting a bed on the floor - Lab Data Result diagrams: 07/26/20 02:43 07/27/20 14:36 Lab Results 07/25/20 07/25/20 07/25/20 Range/Units 18:48 18:48 18:48 WBC 10.9 H (3.8-10.6) k/uL RBC 5.60 (4.30-5.90) m/uL Hgb 15.4 (13.0-17.5) gm/dL Hct 47.6 (39.0-53.0) % MCV 85.0 (80.0-100.0) fL MCH 27.6 (25.0-35.0) pg MCHC 32.4 (31.0-37.0) g/dL RDW 14.9 (11.5-15.5) % Plt Count 215 (150-450) k/uL Neutrophils % 72 % Lymphocytes % 17 % Monocytes % 7 % Eosinophils % 3 % Basophils % 1 % Neutrophils # 7.8 H (1.3-7.7) k/uL Lymphocytes # 1.9 (1.0-4.8) k/uL Monocytes # 0.7 (0-1.0) k/uL Eosinophils # 0.3 (0-0.7) k/uL Basophils # 0.1 (0-0.2) k/uL PT 9.8 (9.0-12.0) sec INR 0.9 (<1.2) Sodium 125 L (137-145) mmol/L Potassium 4.7 (3.5-5.1) mmol/L Chloride 86 L (98-107) mmol/L Carbon Dioxide 24 (22-30) mmol/L Anion Gap 15 mmol/L BUN 35 H (9-20) mg/dL Creatinine 2.62 H (0.66-1.25) mg/dL Est GFR (CKD-EPI)AfAm 29 (>60 ml/min/1.73 sqM) Est GFR (CKD-EPI)NonAf 25 (>60 ml/min/1.73 sqM) Glucose 120 H (74-99) mg/dL Osmolality (280-301) mosm/kg Calcium 9.4 (8.4-10.2) mg/dL Magnesium 2.8 H (1.6-2.3) mg/dL Total Bilirubin 1.8 H (0.2-1.3) mg/dL AST 50 (17-59) U/L ALT 47 (4-49) U/L Alkaline Phosphatase 52 (38-126) U/L Troponin I (0.000-0.034) ng/mL NT-Pro-B Natriuret Pep pg/mL Total Protein 7.0 (6.3-8.2) g/dL Albumin 4.5 (3.5-5.0) g/dL Lipase 44 (23-300) U/L 07/25/20 07/25/20 07/25/20 Range/Units 18:48 18:48 18:48 WBC (3.8-10.6) k/uL RBC (4.30-5.90) m/uL Hgb (13.0-17.5) gm/dL Hct (39.0-53.0) % MCV (80.0-100.0) fL MCH (25.0-35.0) pg MCHC (31.0-37.0) g/dL RDW (11.5-15.5) % Plt Count (150-450) k/uL Neutrophils % % Lymphocytes % % Monocytes % % Eosinophils % % Basophils % % Neutrophils # (1.3-7.7) k/uL Lymphocytes # (1.0-4.8) k/uL Monocytes # (0-1.0) k/uL Eosinophils # (0-0.7) k/uL Basophils # (0-0.2) k/uL PT (9.0-12.0) sec INR (<1.2) Sodium (137-145) mmol/L Potassium (3.5-5.1) mmol/L Chloride (98-107) mmol/L Carbon Dioxide (22-30) mmol/L Anion Gap mmol/L BUN (9-20) mg/dL Creatinine (0.66-1.25) mg/dL Est GFR (CKD-EPI)AfAm (>60 ml/min/1.73 sqM) Est GFR (CKD-EPI)NonAf (>60 ml/min/1.73 sqM) Glucose (74-99) mg/dL Osmolality 272 L (280-301) mosm/kg Calcium (8.4-10.2) mg/dL Magnesium (1.6-2.3) mg/dL Total Bilirubin (0.2-1.3) mg/dL AST (17-59) U/L ALT (4-49) U/L Alkaline Phosphatase (38-126) U/L Troponin I 0.018 (0.000-0.034) ng/mL NT-Pro-B Natriuret Pep 60 pg/mL Total Protein (6.3-8.2) g/dL Albumin (3.5-5.0) g/dL Lipase (23-300) U/L Disposition Clinical Impression: Chest pain, Bradycardia, Dizziness, Hyponatremia, SHAY (acute kidney injury) Disposition: ADMITTED IP TO THIS [facility] Condition: Stable Is patient prescribed a controlled substance at d/c from ED?: No Decision to Admit Reason: Admit from EC Decision Date: 07/25/20 Decision Time: 21:50
--- NOTE | 2020-07-25 19:49 | CT ---
EXAMINATION TYPE: CT brain wo con DATE OF EXAM: 07/25/2020 COMPARISON: 07/28/2019 HISTORY: Dizziness, ataxia. CT DLP: 1165.8 mGycm Automated exposure control for dose reduction was used. There is cerebral cortical atrophy. There is no mass effect nor midline shift. There is no sign of in tracranial hemorrhage. There is mucosal thickening in the paranasal sinuses. The calvarium is intact. Skull base is intact. There is normal aeration of the mastoid sinuses. IMPRESSION: Cerebral atrophy. No acute intracranial abnormality. No change. Sinusitis increased compared to old exam.
--- NOTE | 2020-07-25 21:01 | XR ---
EXAMINATION TYPE: XR chest 2V DATE OF EXAM: 07/25/2020 COMPARISON: 12/16/2018 HISTORY: Chest pain TECHNIQUE: FINDINGS: There is no heart failure nor confluent pneumonic infiltrate. Costophrenic angles are clear . There are chest leads. IMPRESSION: No active cardiopulmonary disease. No change.
[2020-07-25] MEDS ORDERED: MORPHINE SULFATE 4 MG/ML SYRINGE IVP STA (21:46)
[2020-07-25] MEDS ORDERED: NALOXONE 0.4 MG/ML 1 ML VIAL IV PRN (21:50)
[2020-07-25] MEDS ORDERED: SODIUM CHLORIDE 0.9% 1,000 ML IV SCH (23:15)
[2020-07-25] MEDS ORDERED: HYDROmorphone 1 MG/ML 1 ML SYRINGE IVP STA (23:33)
[2020-07-25] MEDS: DULoxetine HCL 60 MG CAPSULE.DR PO SCH (23:39)
[2020-07-25] MEDS: GABAPENTIN 300 MG CAP PO SCH (23:39)
[2020-07-25] MEDS: LACTULOSE 20 GM/30 ML CUP PO PRN (23:39)
[2020-07-25] MEDS: AMITRIPTYLINE HCL 50 MG TAB PO SCH (23:45)
[2020-07-25] MEDS ORDERED: INSULIN DETEMIR (LEVEMIR) 100 UNIT/ML SYR SQ SCH (23:45)
[2020-07-26] MEDS: oxyCODONE-APAP 10-325MG 1 EACH TAB PO SCH ×4 (01:55→20:52)
[2020-07-26 03:18] LABS: Basophils # (A) 0.1 k/uL (0-0.2); Basophils % (A) 1 %; Eosinophils # (A) 0.3 k/uL (0-0.7); Eosinophils % (A) 4 %; HCT 46.8 % (39.0-53.0); HGB 15.1 gm/dL (13.0-17.5); Lymphocytes # (A) 2.3 k/uL (1.0-4.8); Lymphocytes % (A) 27 %; MCH 27.9 pg (25.0-35.0); MCHC 32.4 g/dL (31.0-37.0); MCV 86.4 fL (80.0-100.0); Mean Platelet Volume 7.1; Monocytes # (A) 0.6 k/uL (0-1.0); Monocytes % (A) 6 %; Neutrophils # (A) 5.2 k/uL (1.3-7.7); Neutrophils % (A) 61 %; Platelet Count 197 k/uL (150-450); RBC 5.41 m/uL (4.30-5.90); RDW 15.2 % (11.5-15.5); WBC 8.6 k/uL (3.8-10.6)
[2020-07-26 03:27] LABS: Calcium 8.9 mg/dL (8.4-10.2); Potassium 4.2 mmol/L (3.5-5.1)
[2020-07-26 06:38] LABS: Glucose,Whole Blood 69 mg/dL (75-99)
[2020-07-26 06:44] LABS: Glucose,Whole Blood 83 mg/dL (75-99)
[2020-07-26] MEDS: LEVOTHYROXINE 50 MCG TAB PO SCH (07:04)
[2020-07-26] MEDS: AMITRIPTYLINE HCL 50 MG TAB PO SCH ×2 (08:51→19:43)
[2020-07-26] MEDS: GABAPENTIN 300 MG CAP PO SCH (08:51)
[2020-07-26] MEDS: ATORVASTATIN 20 MG TAB PO SCH (08:51)
[2020-07-26] MEDS: amLODIPine 10 MG TAB PO SCH (08:52)
[2020-07-26] MEDS: cloNIDine HCL 0.2 MG TAB PO SCH ×2 (08:52→19:45)
[2020-07-26] MEDS: SERTRALINE 100 MG TAB PO SCH (08:52)
[2020-07-26] MEDS ORDERED: lisinopriL 10 MG TAB PO SCH (09:00)
[2020-07-26] MEDS ORDERED: AMITRIPTYLINE HCL 50 MG TAB PO SCH (09:00)
[2020-07-26] MEDS ORDERED: hydrALAZINE HCL 50 MG TAB PO SCH (09:00)
--- NOTE | 2020-07-26 10:14 | P.NPCON ---
History of Present Illness - Reason for Consult acute renal failure, hyponatremia - History of Present Illness reason for consultation: Acute kidney injury and hyponatremia History of present illness: Patient is a 60-year-old male seen in renal consultation for acute kidney injury and hyponatremia. Creatinine was 2.62 on admission is 2.4 for this morning. No other records available. Patient denies history of kidney disease. He does have long-standing history of diabetes mellitus and is maintained on insulin. Patient presented to the hospital with left-sided chest pain as well as dizziness. He denies any syncopal episodes or falls. patient's blood pressure was in the systolic 70s to 80s on admission. This morning blood pressure was 105/57. No evidence of orthostatic hypotension. Patient also states that he may have taken extra blood pressure medications because he couldn't remember if he had taken him a few hours prior or not. he is maintained on multiple antihypertensives including lisinopril, clonidine, amlodipine as well as hydralazine. Additionally he admits to taking Motrin 800 mg about twice daily for the last few days. He was actually scheduled for right knee surgery [facility]. Denies family history of kidney disease. He was also noted to have urinary retention and required straight catheterization last night with over 700 mL urine obtained. He currently does not have a Cantrell catheter. He denies any hematuria or dysuria. Vital signs are stable. General: The patient appeared well nourished and normally developed. HEENT: Head exam is unremarkable. Neck is without jugular venous distension. LUNGS: Lungs are clear to auscultation and percussion. Breath sounds decreased. HEART: Rate and Rhythm are regular. ABDOMEN: soft, nontender. Obese. EXTREMITITES: No clubbing, cyanosis, or edema. Past Medical History Past Medical History: Diabetes Mellitus, Hyperlipidemia, Hypertension, Thyroid Disorder Additional Past Medical History / Comment(s): chronic back pain History of Any Multi-Drug Resistant Organisms: None Reported Past Surgical History: Orthopedic Surgery Additional Past Surgical History / Comment(s): right and left knee surgery Past Anesthesia/Blood Transfusion Reactions: No Reported Reaction Past Psychological History: Anxiety, Depression Smoking Status: Former smoker Past Alcohol Use History: None Reported Additional Past Alcohol Use History / Comment(s): QUIT SMOKING 2017 Past Drug Use History: None Reported - Past Family History Mother Family Medical History: Cancer Medications and Allergies Home Medications Medication Instructions Recorded Confirmed Type Amitriptyline HCl [Elavil] 50 mg PO BID 12/16/18 07/25/20 History Atorvastatin [Lipitor] 20 mg PO DAILY 12/16/18 07/25/20 History DULoxetine HCL [Cymbalta] 60 mg PO HS 12/16/18 07/25/20 History Levothyroxine Sodium [Synthroid] 50 mcg PO DAILY 12/16/18 07/25/20 History Sertraline [Zoloft] 200 mg PO DAILY 12/16/18 07/25/20 History Testosterone Cypionate 120 mg IM WE 12/16/18 07/25/20 History [Depo-Testosterone] amLODIPine [Norvasc] 10 mg PO DAILY 12/16/18 07/25/20 History hydrALAZINE HCL [Apresoline] 50 mg PO BID 12/16/18 07/25/20 History metFORMIN HCL 1,000 mg PO BID 12/16/18 07/25/20 History oxyCODONE-APAP 10-325MG [Percocet 1 tab PO TID 12/16/18 07/25/20 History 10-325 mg] Gabapentin 600 mg PO TID 07/23/20 07/25/20 History Insulin Degludec [Tresiba] 70 units SQ HS 07/23/20 07/25/20 History Ibuprofen [Motrin] 800 mg PO BID PRN 07/25/20 07/25/20 History Lactulose 10 gm PO BID PRN 07/25/20 07/25/20 History Pioglitazone [Actos] 15 mg PO DAILY 07/25/20 07/25/20 History cloNIDine HCL [Catapres] 0.2 mg PO BID 07/25/20 07/25/20 History lisinopriL [Zestril] 10 mg PO DAILY 07/25/20 07/25/20 History Allergies Allergy/AdvReac Type Severity Reaction Status Date / Time Sulfa (Sulfonamide Allergy Swelling Verified 07/25/20 22:01 Antibiotics) Physical Exam Vitals: Vital Signs Temp Pulse Pulse Pulse Pulse Pulse Resp 07/26/20 08:35 97.2 F L 70 64 53 L 18 07/26/20 04:30 56 L 07/26/20 03:55 52 L 07/26/20 03:50 54 L 19 07/26/20 00:00 97.9 F 65 18 07/25/20 22:45 97.8 F 55 L 20 07/25/20 22:00 52 L 18 07/25/20 21:00 98.1 F 52 L 18 07/25/20 20:00 54 L 20 07/25/20 19:00 51 L 18 07/25/20 18:47 98.6 F 07/25/20 18:42 54 L 20 07/25/20 18:40 52 L BP BP BP BP BP BP Pulse Ox 07/26/20 08:35 105/57 106/54 105/61 92 L 07/26/20 04:30 105/47 07/26/20 03:55 79/40 07/26/20 03:50 87/37 91 L 07/26/20 00:00 120/56 92 L 07/25/20 22:45 100/63 98 07/25/20 22:00 105/57 98 07/25/20 21:00 109/83 99 07/25/20 20:00 108/84 100 07/25/20 19:00 105/81 98 07/25/20 18:47 07/25/20 18:42 111/50 95 07/25/20 18:40 Intake and Output 07/25/20 07/26/20 07/26/20 22:59 06:59 14:59 Other: Voiding Method Toilet Urinal # Voids 1 # Bowel Movements 0 Weight 131.542 kg 131.542 kg Results - Lab Results Most recent lab results Calcium 8.9 mg/dL (8.4-10.2) 07/26/20 02:43 Magnesium 2.8 mg/dL (1.6-2.3) H 07/25/20 18:48 07/26/20 02:43 07/26/20 02:43 Assessment and Plan Plan: assessment: 1. Acute kidney injury secondary to ATN secondary to hypotension and nonsteroidals. also component of urinary retention. Creatinine 2.62 on admission and is 2.44 this morning. 2. rule out chronic kidney disease. Unknown baseline renal function. 3. Urinary retention status post recatheterization last night. 4. Hypotension secondary to antihypertensives. 5. Hyponatremia. Appears euvolemic. suspect SIADH secondary to nonsteroidals, Zoloft, Elavil. plan: Hep-Lock IV fluids. 1200 mL fluid restriction. Encouraged oral intake, particularly protein. Check serum and urine osmolality and urine sodium level. Check TSH and uric acid level. Hold all anti-hypertensives for systolic blood pressure less than 130. Repeat electrolytes in the morning. check renal ultrasound. Check urinalysis. Monitor bladder scans closely. If has persistent retention, insert Cantrell catheter. follow-up echocardiogram. Thank you for the consultation. I will continue to follow the patient with you during his hospital stay.
[2020-07-26] MEDS: LACTULOSE 20 GM/30 ML CUP PO PRN (11:45)
[2020-07-26 11:52] LABS: Glucose,Whole Blood 95 mg/dL (75-99)
--- NOTE | 2020-07-26 12:16 | US ---
EXAMINATION TYPE: US kidneys/renal and bladder DATE OF EXAM: 07/26/2020 COMPARISON: NONE CLINICAL HISTORY: maria m. Very difficult and limited exam due to patient body habitus EXAM MEASUREMENTS: Right Kidney: 11.3 x 5.9 x 5.2 cm Left Kidney: 12.5 x 7.8 x 5.5 cm Right Kidney: No hydronephrosis or masses seen Left Kidney: No hydronephrosis or masses seen as visualized Bladder: Patient has sierra There is no evidence for hydronephrosis at this point in time. No nephrolithiasis is seen. No ayni s are identified. Kidneys show normal cortical medullary differentiation IMPRESSION: Exam is somewhat limited. No hydronephrosis is evident.
--- NOTE | 2020-07-26 13:12 | ECHOF ---
Referral Reason:lv function MEASUREMENTS -------- HEIGHT: 170.2 cm WEIGHT: 131.5 kg BP: RVIDd: 3.4 cm (< 3.3) IVSd: 1.4 cm (0.6 - 1.1) LVIDd: 3.0 cm (3.9 - 5.3) LVPWd: 0.9 cm (0.6 - 1.1) IVSs: 1.9 cm LVIDs: 3.9 cm LVPWs: 2.2 cm Ao Diam: 3.0 cm (2.0 - 3.7) AV Cusp: 2.4 cm (1.5 - 2.6) LA Diam: 4.8 cm (2.7 - 3.8) MV EXCURSION: 16.052 mm (> 18.000) MV EF SLOPE: 98 mm/s (70 - 150) EPSS: 0.5 cm MV E Jim: 1.09 m/s MV DecT: 201 ms MV A Jim: 1.22 m/s MV E/A Ratio: 0.89 FINDINGS -------- Sinus rhythm. Morbid Obesity This was a techncally difficult study with suboptimal views, , Lumason utilized for enhancement of im ages. The left ventricular size is normal. There is moderate concentric left ventricular hypertrophy. O verall left ventricular systolic function is low-normal with, an EF between 50 - 55 %. The right ventricle is normal in size. The left atrial size is normal. The right atrial size is normal. The aortic valve was not well visualized. The mitral valve was not well visualized. The tricuspid valve was not well visualized. The pulmonic valve was not well visualized. The aortic root size is normal. There is no pericardial effusion. CONCLUSIONS -------- 1. Morbid Obesity 2. This was a techncally difficult study with suboptimal views, , Lumason utilized for enhancement of images. 3. The left ventricular size is normal. 4. There is moderate concentric left ventricular hypertrophy. 5. Overall left ventricular systolic function is low-normal with, an EF between 50 - 55 %. 6. The right ventricle is normal in size. 7. The left atrial size is normal. 8. The right atrial size is normal. 9. The aortic valve was not well visualized. 10. The mitral valve was not well visualized. 11. The tricuspid valve was not well visualized. 12. The pulmonic valve was not well visualized. 13. There is no pericardial effusion. FERRULER: Smiley Plasencia RDCS
--- NOTE | 2020-07-26 13:39 | P.CRDCN ---
History of Present Illness Consult date: 07/26/20 History of present illness: CHIEF COMPLAINT: Chest pain HISTORY OF PRESENT ILLNESS: This is a 60-year old male with a past medical history significant for diabetes mellitus, hyperlipidemia, hypertension. Patient follows in the office with Dr. Mckeon. We have been asked to see the patient in consultation for chest pain. Patient examined this morning the bedside. Patient states he woke up yesterday around 5 AM and was feeling dizzy. He states he just felt out of it and not himself. Patient reports having mild shortness of breath. He denies ever having any chest pain. Patient's blood pressure has been running on the lower side during hospitalization. Patient states he was unsure if he took his antihypertensive medications yesterday morning and believes he may have taken them all twice yesterday. He reports that he was recently restarted on Norvasc and lisinopril a few weeks ago. Patient underwent a stress test in March 2020 which was negative for reversible ischemia. DIAGNOSTICS: EKG reveals sinus rhythm with first-degree AV block. Right bundle-branch block.. Chest xray No active cardiac pulmonary disease. Laboratory data: WBC 8.6. Hemoglobin 15.1.Platelet Count 197. Sodium 124. Potassium 4.2. BUN 35. Creatinine 2.44. Troponin negative 3 Current home cardiac medications include lisinopril 10 mg daily, Catapres 0.2 mg twice a day, Norvasc 10 mg daily, Lipitor 20 mg daily, and hydralazine 50mg twice a day. REVIEW OF SYSTEMS: At the time of my exam: CONSTITUTIONAL: Denies fever or chills. HEENT: Denies blurred vision, vision changes, or eye pain. Denies hemoptysis CARDIOVASCULAR: Denies chest pain, orthopnea, PND or palpitations RESPIRATORY: No shortness of breath. GASTROINTESTINAL: Denies abdominal pain. Denies nausea or vomiting. HEMATOLOGIC: Denies bleeding disorders. GENITOURINARY: Denies any blood in urine. SKIN: Denies pruitis. Denies rash. PHYSICAL EXAM: VITAL SIGNS: Reviewed. GENERAL: Well-developed in no acute distress. HEENT: Head is normocephalic. Pupils are equal, round. Sclerae anicteric. Mucous membranes of the mouth are moist. Neck supple. No JVD or thyromegaly LUNGS: Respirations even and unlabored. Lungs essentially clear to auscultation bilaterally. HEART: Regular rate and rhythm. S1 and S2 heard. ABDOMEN: Soft. Nondistended. Nontender. EXTREMITIES: Normal range of motion. No clubbing or cyanosis. Peripheral pulses intact. Trace bilateral lower extremity edema NEUROLOGIC: Awake and alert. Oriented x 3. ASSESSMENT: Dizziness and hypotension, may be secondary to accidentally taking BP medications twice yesterday Hypertension Hyperlipidemia Diabetes mellitus, type II Acute kidney injury PLAN: Obtain orthostatic blood pressures Continue to hold antihypertensive medications secondary to hypotension Obtain 2-D echo to assess cardiac structure and function Further recommendations pending patient's course Nurse practitioner note has been reviewed by physician. Signing provider agrees with the documented findings, assessment, and plan of care. Past Medical History Past Medical History: Diabetes Mellitus, Hyperlipidemia, Hypertension, Thyroid Disorder Additional Past Medical History / Comment(s): chronic back pain History of Any Multi-Drug Resistant Organisms: None Reported Past Surgical History: Orthopedic Surgery Additional Past Surgical History / Comment(s): right and left knee surgery Past Anesthesia/Blood Transfusion Reactions: No Reported Reaction Past Psychological History: Anxiety, Depression Smoking Status: Former smoker Past Alcohol Use History: None Reported Additional Past Alcohol Use History / Comment(s): QUIT SMOKING 2017 Past Drug Use History: None Reported - Past Family History Mother Family Medical History: Cancer Medications and Allergies Home Medications Medication Instructions Recorded Confirmed Type Amitriptyline HCl [Elavil] 50 mg PO BID 12/16/18 07/25/20 History Atorvastatin [Lipitor] 20 mg PO DAILY 12/16/18 07/25/20 History DULoxetine HCL [Cymbalta] 60 mg PO HS 12/16/18 07/25/20 History Levothyroxine Sodium [Synthroid] 50 mcg PO DAILY 12/16/18 07/25/20 History Sertraline [Zoloft] 200 mg PO DAILY 12/16/18 07/25/20 History Testosterone Cypionate 120 mg IM WE 12/16/18 07/25/20 History [Depo-Testosterone] amLODIPine [Norvasc] 10 mg PO DAILY 12/16/18 07/25/20 History hydrALAZINE HCL [Apresoline] 50 mg PO BID 12/16/18 07/25/20 History metFORMIN HCL 1,000 mg PO BID 12/16/18 07/25/20 History oxyCODONE-APAP 10-325MG [Percocet 1 tab PO TID 12/16/18 07/25/20 History 10-325 mg] Gabapentin 600 mg PO TID 07/23/20 07/25/20 History Insulin Degludec [Tresiba] 70 units SQ HS 07/23/20 07/25/20 History Ibuprofen [Motrin] 800 mg PO BID PRN 07/25/20 07/25/20 History Lactulose 10 gm PO BID PRN 07/25/20 07/25/20 History Pioglitazone [Actos] 15 mg PO DAILY 07/25/20 07/25/20 History cloNIDine HCL [Catapres] 0.2 mg PO BID 07/25/20 07/25/20 History lisinopriL [Zestril] 10 mg PO DAILY 07/25/20 07/25/20 History Allergies Allergy/AdvReac Type Severity Reaction Status Date / Time Sulfa (Sulfonamide Allergy Swelling Verified 07/25/20 22:01 Antibiotics) Physical Exam Vitals: Vital Signs Temp Pulse Pulse Pulse Pulse Pulse Resp 07/26/20 08:35 97.2 F L 70 64 53 L 18 07/26/20 04:30 56 L 07/26/20 03:55 52 L 07/26/20 03:50 54 L 19 07/26/20 00:00 97.9 F 65 18 07/25/20 22:45 97.8 F 55 L 20 07/25/20 22:00 52 L 18 07/25/20 21:00 98.1 F 52 L 18 07/25/20 20:00 54 L 20 07/25/20 19:00 51 L 18 07/25/20 18:47 98.6 F 07/25/20 18:42 54 L 20 07/25/20 18:40 52 L BP BP BP BP BP BP Pulse Ox 07/26/20 08:35 105/57 106/54 105/61 92 L 07/26/20 04:30 105/47 07/26/20 03:55 79/40 07/26/20 03:50 87/37 91 L 07/26/20 00:00 120/56 92 L 07/25/20 22:45 100/63 98 07/25/20 22:00 105/57 98 07/25/20 21:00 109/83 99 07/25/20 20:00 108/84 100 07/25/20 19:00 105/81 98 07/25/20 18:47 07/25/20 18:42 111/50 95 07/25/20 18:40 Intake and Output 07/25/20 07/26/20 07/26/20 22:59 06:59 14:59 Intake Total 240 Balance 240 Intake: Oral 240 Other: Voiding Method Toilet Toilet Urinal Urinal # Voids 1 # Bowel Movements 0 Weight 131.542 kg 131.542 kg Results 07/26/20 02:43 07/26/20 02:43 Cardiac Enzymes 07/25/20 07/25/20 07/26/20 Range/Units 18:48 18:48 00:18 AST 50 (17-59) U/L Troponin I 0.018 <0.012 (0.000-0.034) ng/mL 07/26/20 Range/Units 02:43 AST (17-59) U/L Troponin I <0.012 (0.000-0.034) ng/mL Coagulation 07/25/20 Range/Units 18:48 PT 9.8 (9.0-12.0) sec CBC 07/25/20 07/26/20 Range/Units 18:48 02:43 WBC 10.9 H 8.6 (3.8-10.6) k/uL RBC 5.60 5.41 (4.30-5.90) m/uL Hgb 15.4 15.1 (13.0-17.5) gm/dL Hct 47.6 46.8 (39.0-53.0) % Plt Count 215 197 (150-450) k/uL Comprehensive Metabolic Panel 07/25/20 07/26/20 Range/Units 18:48 02:43 Sodium 125 L 124 L (137-145) mmol/L Potassium 4.7 4.2 (3.5-5.1) mmol/L Chloride 86 L 89 L (98-107) mmol/L Carbon Dioxide 24 27 (22-30) mmol/L BUN 35 H 35 H (9-20) mg/dL Creatinine 2.62 H 2.44 H (0.66-1.25) mg/dL Glucose 120 H 104 H (74-99) mg/dL Calcium 9.4 8.9 (8.4-10.2) mg/dL AST 50 (17-59) U/L ALT 47 (4-49) U/L Alkaline Phosphatase 52 (38-126) U/L Total Protein 7.0 (6.3-8.2) g/dL Albumin 4.5 (3.5-5.0) g/dL Current Medications Generic Name Dose Route Start Last Admin Trade Name Freq PRN Reason Stop Dose Admin Amitriptyline HCl 50 mg 07/25/20 23:38 07/26/20 08:51 Amitriptyline Hcl 50 Mg Tab PO 50 mg BID SHERIDAN Administration Amlodipine Besylate 10 mg 07/26/20 09:00 07/26/20 08:52 Amlodipine 10 Mg Tab PO Not Given DAILY SHERIDAN Atorvastatin Calcium 20 mg 07/26/20 09:00 07/26/20 08:51 Atorvastatin 20 Mg Tab PO 20 mg DAILY SHERIDAN Administration Clonidine 0.2 mg 07/26/20 09:00 07/26/20 08:52 Clonidine Hcl 0.2 Mg Tab PO Not Given BID SHERIDAN Duloxetine HCl 60 mg 07/25/20 23:00 07/25/20 23:39 Duloxetine Hcl 60 Mg Capsule.Dr PO 60 mg HS SHERIDAN Administration Gabapentin 600 mg 07/26/20 21:00 Gabapentin 300 Mg Cap PO HS SHERIDAN Insulin Detemir 50 unit 07/26/20 21:00 Insulin Detemir (Levemir) 100 Unit/Ml Syr SQ HS SHERIDAN Lactulose 10 gm 07/25/20 22:30 07/26/20 11:45 Lactulose 20 Gm/30 Ml Cup PO 10 gm BID PRN Administration Constipation Levothyroxine Sodium 50 mcg 07/26/20 06:30 07/26/20 07:04 Levothyroxine 50 Mcg Tab PO 50 mcg DAILY@0630 SHERIDAN Administration Naloxone HCl 0.2 mg 07/25/20 21:50 Naloxone 0.4 Mg/Ml 1 Ml Vial IV Q2M PRN Opioid Reversal Oxycodone/Acetaminophen 1 each 07/25/20 22:30 07/26/20 08:51 Oxycodone-Apap 10-325mg 1 Each Tab PO 1 each TID SHERIDAN Administration Sertraline HCl 200 mg 07/26/20 09:00 07/26/20 08:52 Sertraline 100 Mg Tab PO 200 mg DAILY SHERIDAN Administration Intake and Output 07/25/20 07/26/20 07/26/20 22:59 06:59 14:59 Intake Total 240 Balance 240 Intake: Oral 240 Other: Voiding Method Toilet Toilet Urinal Urinal # Voids 1 # Bowel Movements 0 Weight 131.542 kg 131.542 kg 07/26/20 02:43 07/26/20 02:43
[2020-07-26 14:06] LABS: Appearance,Urine Cloudy (Clear); Bacteria,Urine Rare /hpf; Bilirubin,Urine Negative (Negative); Blood,Urine Negative (Negative); Color,Urine Yellow; Glucose,Urine (UA) 3+ (Negative); Ketones,Urine Negative (Negative); Leukocyte Esterase,Urine Large (Negative); Mucus,Urine Rare /hpf; Nitrite,Urine Negative (Negative); Protein,Urine Negative (Negative); Squamous Epithelial Cell,Urine 3 /hpf (0-4); Urobilinogen,Urine <2.0 mg/dL (<2.0); WBC,Urine 20 /hpf (0-5)
--- NOTE | 2020-07-26 14:08 | XR ---
EXAMINATION TYPE: XR abdomen acute w cxr DATE OF EXAM: 07/26/2020 COMPARISON: Prior chest x-ray dated 12/16/2018, 07/25/2020 HISTORY: Severe constipation TECHNIQUE: Supine, upright, and chest views of the abdomen and chest are obtained. FINDINGS: Chest x-ray shows a stable appearance. There is no evidence for pneumoperitoneum. The bowel gas pattern is unremarkable as there is air throughout nondilated small and large bowel. There are air-fluid levels present without bowel distention. Some retained fecal debris present along the ascending colon and descending colon, transverse colon No mass effects are seen. No unusual calcifications. IMPRESSION: Correlate for fecal stasis. There may be an underlying ileus or enteritis, follow-up as indicated if obstruction is suspected clinically.
--- NOTE | 2020-07-26 16:16 | P.HPIM ---
History of Present Illness H&P Date: 07/26/20 Chief Complaint: Dizzy History of presenting complaint: This is a pleasant 60-year-old patient of Dr. Hyde. Chronic stable medical conditions include diabetes mellitus type 2, hypertension, hyperlipidemia, hypothyroid. Chronic low back pain., Anxiety depression. Patient took his dog out for a walk yesterday and felt dizzy. He also noticed a heartburn central. Normally does not get reflux symptoms. Denied any perspiration shortness of breath. [place] a little bit often forgetful. Patient does use a CPAP. Patient normally has a bowel movement every day one or twice a day. But at this time is not a bowel movement for 4 days. Feels a bit distended. Has some nausea. Did throw up 2 days ago. Patient does take Motrin at home. Found to be in renal failure in the ER. Not available prior abnormal kidney function. Appetite is okay. Patient also been having urinary retention. Does a concern that he may have taken his medication twice. As he was not sure at home. Denies any obvious fever. Review of systems: GEN.: Tired EYES: None HEENT: None NECK: None RESPIRATORY: None CARDIOVASCULAR: None GASTROINTESTINAL: None GENITOURINARY: Decreased urine output MUSCULOSKELETAL: Chronic low back pain LYMPHATICS: None HEMATOLOGICAL: None PSYCHIATRY: None NEUROLOGICAL: No focal symptoms. Past medical history to include: Diabetes, hypertension, hyperlipidemia, hypothyroid, chronic low back pain, anxiety depression Social history: Lives alone. Did work as a recruiter specialist. Smoked a pack a day for 15 years stopped about 2 years ago. No alcohol. Physical examination: VITAL SIGNS: 98.6, 54, 20, 111/50, 95% on 2 L GENERAL: BMI 45.4, laying in bed, awake. EYES: Pupils equal. Conjunctiva normal. HEENT: External appearance of nose and ears normal, oral cavity grossly normal. NECK: JVD not raised; masses not palpable. HEART: First and second heart sounds are normal; no edema. LUNGS: Respiratory rate normal; clear to auscultation. ABDOMEN: Soft, distended, hyperactive bowel sounds nontender, liver spleen not palpable, no masses palpable. PSYCH: [Alert and oriented x3; mood and affect anxious. NEUROLOGICAL: Cranial nerves grossly intact; no facial asymmetry, power and sensation grossly intact. LYMPHATICS: No lymph nodes palpable in the axilla and neck INVESTIGATIONS, reviewed in the clinical context: White count 8.6 hemoglobin 15.1 platelets 197 sodium 124 potassium 4.2 creatinine 2.44 bun 35 serum osmolality 273, blood glucose 104 UA positive for glucose 3+ leukoesterase positive WBC 20 urine osmolality 226 EKG tracing personally reviewed by me-normal sinus rhythm, poor LV progression, Computed tomography scan of the brain without contrast-cerebral atrophy Chest x-ray film personally reviewed by me-no obvious infiltrate Abdominal x-ray film personally reviewed by me show-fecal stasis Abdominal [id number]-[id number] normal cortical medullary differentiation 2-D echocardiogram-EF 50-55%, moderate concentric LVH Assessment: -Acute kidney injury, in a patient who takes Motrin once or twice a day, and GIA inhibitor. He does not have a baseline creatinine available.. Patient not a rate of his previous any abnormal renal function. -Morbid obesity BMI 45.4 -Severe constipation, as evidenced on x-ray and clinically -Hypoosmolar, hyponatremia -Diabetes mellitus type 2, uncontrolled with hypoglycemia -Hyperlipidemia -Essential hypertension -Hypothyroid -Chronic low back pain -Anxiety depression not otherwise specified -Acute urinary retention -Primary osteoarthritis. Patient is due for knee surgery tomorrow. Postpone. Plan: Patient be given a enema. Discussed with Dr. Salazar from nephrology. Patient's placed fluid restriction. Cantrell catheter. Antihypertensive to be held for now. Given hyponatremia and low blood pressure check for adrenal insufficiency. Care was discussed with the patient. Questions answered. Also give a K pad for the lower back pain Past Medical History Past Medical History: Diabetes Mellitus, Hyperlipidemia, Hypertension, Thyroid D isorder Additional Past Medical History / Comment(s): chronic back pain History of Any Multi-Drug Resistant Organisms: None Reported Past Surgical History: Orthopedic Surgery Additional Past Surgical History / Comment(s): right and left knee surgery Past Anesthesia/Blood Transfusion Reactions: No Reported Reaction Past Psychological History: Anxiety, Depression Smoking Status: Former smoker Past Alcohol Use History: None Reported Additional Past Alcohol Use History / Comment(s): QUIT SMOKING 2017 Past Drug Use History: None Reported - Past Family History Mother Family Medical History: Cancer Medications and Allergies Home Medications Medication Instructions Recorded Confirmed Type Amitriptyline HCl [Elavil] 50 mg PO BID 12/16/18 07/25/20 History Atorvastatin [Lipitor] 20 mg PO DAILY 12/16/18 07/25/20 History DULoxetine HCL [Cymbalta] 60 mg PO HS 12/16/18 07/25/20 History Levothyroxine Sodium [Synthroid] 50 mcg PO DAILY 12/16/18 07/25/20 History Sertraline [Zoloft] 200 mg PO DAILY 12/16/18 07/25/20 History Testosterone Cypionate 120 mg IM WE 12/16/18 07/25/20 History [Depo-Testosterone] amLODIPine [Norvasc] 10 mg PO DAILY 12/16/18 07/25/20 History hydrALAZINE HCL [Apresoline] 50 mg PO BID 12/16/18 07/25/20 History metFORMIN HCL 1,000 mg PO BID 12/16/18 07/25/20 History oxyCODONE-APAP 10-325MG [Percocet 1 tab PO TID 12/16/18 07/25/20 History 10-325 mg] Gabapentin 600 mg PO TID 07/23/20 07/25/20 History Insulin Degludec [Tresiba] 70 units SQ HS 07/23/20 07/25/20 History Ibuprofen [Motrin] 800 mg PO BID PRN 07/25/20 07/25/20 History Lactulose 10 gm PO BID PRN 07/25/20 07/25/20 History Pioglitazone [Actos] 15 mg PO DAILY 07/25/20 07/25/20 History cloNIDine HCL [Catapres] 0.2 mg PO BID 07/25/20 07/25/20 History lisinopriL [Zestril] 10 mg PO DAILY 07/25/20 07/25/20 History Allergies Allergy/AdvReac Type Severity Reaction Status Date / Time Sulfa (Sulfonamide Allergy Swelling Verified 07/25/20 22:01 Antibiotics) Physical Exam Vitals: Vital Signs Temp Pulse Pulse Pulse Pulse Pulse Resp 07/26/20 08:35 97.2 F L 70 64 53 L 18 07/26/20 04:30 56 L 07/26/20 03:55 52 L 07/26/20 03:50 54 L 19 07/26/20 00:00 97.9 F 65 18 07/25/20 22:45 97.8 F 55 L 20 07/25/20 22:00 52 L 18 10/04/20 21:00 98.1 F 52 L 18 07/25/20 20:00 54 L 20 07/25/20 19:00 51 L 18 07/25/20 18:47 98.6 F 07/25/20 18:42 54 L 20 07/25/20 18:40 52 L BP BP BP BP BP BP Pulse Ox 07/26/20 08:35 105/57 106/54 105/61 92 L 07/26/20 04:30 105/47 07/26/20 03:55 79/40 07/26/20 03:50 87/37 91 L 07/26/20 00:00 120/56 92 L 07/25/20 22:45 100/63 98 07/25/20 22:00 105/57 98 07/25/20 21:00 109/83 99 07/25/20 20:00 108/84 100 07/25/20 19:00 105/81 98 07/25/20 18:47 07/25/20 18:42 111/50 95 07/25/20 18:40 Intake and Output 07/25/20 07/26/20 07/26/20 22:59 06:59 14:59 Intake Total 240 Balance 240 Intake: Oral 240 Other: Voiding Method Toilet Urinal # Voids 1 # Bowel Movements 0 Weight 131.542 kg 131.542 kg Results CBC & Chem 7: 07/26/20 02:43 07/26/20 02:43 Labs: Abnormal Lab Results - Last 24 Hours (Table) 07/25/20 07/25/20 07/25/20 Range/Units 18:48 18:48 18:48 WBC 10.9 H (3.8-10.6) k/uL Neutrophils # 7.8 H (1.3-7.7) k/uL Sodium 125 L (137-145) mmol/L Chloride 86 L (98-107) mmol/L BUN 35 H (9-20) mg/dL Creatinine 2.62 H (0.66-1.25) mg/dL Glucose 120 H (74-99) mg/dL POC Glucose (mg/dL) (75-99) mg/dL Osmolality 272 L (280-301) mosm/kg Magnesium 2.8 H (1.6-2.3) mg/dL Total Bilirubin 1.8 H (0.2-1.3) mg/dL 07/26/20 07/26/20 Range/Units 02:43 06:08 WBC (3.8-10.6) k/uL Neutrophils # (1.3-7.7) k/uL Sodium 124 L (137-145) mmol/L Chloride 89 L (98-107) mmol/L BUN 35 H (9-20) mg/dL Creatinine 2.44 H (0.66-1.25) mg/dL Glucose 104 H (74-99) mg/dL POC Glucose (mg/dL) 69 L (75-99) mg/dL Osmolality (280-301) mosm/kg Magnesium (1.6-2.3) mg/dL Total Bilirubin (0.2-1.3) mg/dL Thrombosis Risk Factor Assmnt - Choose All That Apply Each Risk Factor Represents 2 Points: Age 61-74 years Thrombosis Risk Factor Assessment Total Risk Factor Score: 2 Thrombosis Risk Factor Assessment Level: Low Risk
[2020-07-26 17:42] LABS: Glucose,Whole Blood 117 mg/dL (75-99)
[2020-07-26] MEDS: DULoxetine HCL 60 MG CAPSULE.DR PO SCH (19:43)
[2020-07-26 20:37] LABS: Glucose,Whole Blood 138 mg/dL (75-99)
[2020-07-26] MEDS ORDERED: INSULIN DETEMIR (LEVEMIR) 100 UNIT/ML SYR SQ SCH ×2 (21:00)
[2020-07-26] MEDS ORDERED: GABAPENTIN 300 MG CAP PO SCH (21:00)
[2020-07-27] MEDS: LEVOTHYROXINE 50 MCG TAB PO SCH (06:08)
[2020-07-27 06:12] LABS: Glucose,Whole Blood 93 mg/dL (75-99)
[2020-07-27 07:36] LABS: Calcium 9.7 mg/dL (8.4-10.2); Magnesium 2.6 mg/dL (1.6-2.3); Potassium 4.3 mmol/L (3.5-5.1); Uric Acid 8.2 mg/dL (3.5-8.5)
[2020-07-27] MEDS ORDERED: ACETAMINOPHEN TAB 325 MG TAB PO PRN (08:26)
[2020-07-27] MEDS: SERTRALINE 100 MG TAB PO SCH (08:33)
[2020-07-27] MEDS: cloNIDine HCL 0.2 MG TAB PO SCH (08:34)
[2020-07-27] MEDS: oxyCODONE-APAP 10-325MG 1 EACH TAB PO SCH ×2 (08:34→16:34)
[2020-07-27] MEDS: amLODIPine 10 MG TAB PO SCH (08:34)
[2020-07-27] MEDS: AMITRIPTYLINE HCL 50 MG TAB PO SCH (08:34)
[2020-07-27] MEDS: ATORVASTATIN 20 MG TAB PO SCH (08:34)
[2020-07-27 09:24] LABS: T4, Free (Free Thyroxine) 1.07 ng/dL (0.78-2.19)
[2020-07-27 09:43] LABS: Glucose,Whole Blood 114 mg/dL (75-99)
[2020-07-27] MEDS ORDERED: DEXTROSE 5% IN WATER 1,000 ML IV ONE (10:31)
--- NOTE | 2020-07-27 10:34 | P.PN ---
Subjective Patient is seen in follow-up for acute kidney injury. Renal function improving. Has a Cantrell catheter for urinary retention. Blood pressure controlled. Oral intake fair. Denies vomiting or diarrhea. Vital signs are stable. General: The patient appeared well nourished and normally developed. HEENT: Head exam is unremarkable. Neck is without jugular venous distension. LUNGS: Lungs are clear to auscultation and percussion. Breath sounds decreased. HEART: Rate and Rhythm are regular. ABDOMEN: Soft, nontender. Obese. EXTREMITITES: No clubbing, cyanosis, or edema. Objective - Vital Signs Vital signs: Vital Signs Temp 100.6 F H 07/27/20 08:05 Pulse 111 H 07/27/20 08:05 Resp 26 H 07/27/20 08:05 BP 146/68 07/27/20 08:05 Pulse Ox 92 L 07/27/20 08:05 Intake & Output 07/26/20 07/27/20 07/27/20 18:59 06:59 18:59 Intake Total 1105 100 Output Total 1500 4750 1525 Balance -395 -4650 -1525 Weight 129.7 kg Intake: Intake, IV Titration 225 Amount Sodium Chloride 0.9% 1, 225 000 ml @ 75 mls/hr IV . [id number] [facility] Rx#:[id number] Oral 880 100 Output: Urine 1500 4750 1525 Uretheral (Cantrell) 1500 Other: Voiding Method Indwelling Catheter Indwelling Catheter Indwelling Catheter - Labs CBC & Chem 7: 07/26/20 02:43 07/27/20 06:50 Labs: Abnormal Lab Results - Last 24 Hours (Table) 07/26/20 07/26/20 07/26/20 Range/Units 02:43 11:34 17:38 BUN (9-20) mg/dL Glucose (74-99) mg/dL POC Glucose (mg/dL) 117 H (75-99) mg/dL Osmolality 273 L (280-301) mosm/kg Magnesium (1.6-2.3) mg/dL TSH (0.465-4.680) mIU/L Urine Glucose (UA) 3+ H (Negative) Ur Leukocyte Esterase Large H (Negative) Urine WBC 20 H (0-5) /hpf Urine Bacteria Rare H (None) /hpf Urine Mucus Rare H (None) /hpf 07/26/20 07/27/20 07/27/20 Range/Units 20:35 06:50 09:41 BUN 25 H (9-20) mg/dL Glucose 107 H (74-99) mg/dL POC Glucose (mg/dL) 138 H 114 H (75-99) mg/dL Osmolality (280-301) mosm/kg Magnesium 2.6 H (1.6-2.3) mg/dL TSH 0.349 L (0.465-4.680) mIU/L Urine Glucose (UA) (Negative) Ur Leukocyte Esterase (Negative) Urine WBC (0-5) /hpf Urine Bacteria (None) /hpf Urine Mucus (None) /hpf Assessment and Plan Plan: assessment: 1. Acute kidney injury secondary to ATN secondary to hypotension and nonsteroidals. also component of urinary retention. Creatinine 2.62 on admission and is 1.19 this morning. No proteinuria on UA. No evidence of hydronephrosis noted on kidney ultrasound. 2. rule out chronic kidney disease. Unknown baseline renal function. 3. Urinary retention. Currently has Cantrell catheter. 4. Hypotension secondary to antihypertensives. Better. 5. Hyponatremia secondary to urinary retention. Resolved. TSH and cortisol normal. plan: Encouraged oral intake. Remove fluid restriction. Start D5W at 75 mL an hour for 3 hours. Repeat sodium level at 2 PM today. Continue to hold antihypertensives for systolic blood pressure less than 1:30.
[2020-07-27 11:31] VITALS: RESP 20
[2020-07-27 11:32] LABS: Glucose,Whole Blood 90 mg/dL (75-99)
--- NOTE | 2020-07-27 13:15 | P.PN ---
Subjective Progress Note Date: 07/27/20 CHIEF COMPLAINT: Chest pain HISTORY OF PRESENT ILLNESS: Patient examined this morning at the bedside. Patient denies chest pain or pressure. He denies shortness of breath. Patient's hypotension has resolved. Heart rate is in the 70s. Creatinine 1.1 today. No further episodes of dizziness. Echocardiogram completed reveals ejection fraction between 50 and 55%. PHYSICAL EXAM: VITAL SIGNS: Reviewed. GENERAL: Well-developed in no acute distress. HEENT: Head is normocephalic. Pupils are equal, round. Sclerae anicteric. Mucous membranes of the mouth are moist. Neck supple. No JVD or thyromegaly LUNGS: Respirations even and unlabored. Lungs essentially clear to auscultation bilaterally. HEART: Regular rate and rhythm. S1 and S2 heard. ABDOMEN: Soft. Nondistended. Nontender. EXTREMITIES: Normal range of motion. No clubbing or cyanosis. Peripheral pulses intact. No lower extremity edema NEUROLOGIC: Awake and alert. Oriented x 3. ASSESSMENT: Dizziness and hypotension, may be secondary to accidentally taking BP medications twice Hypertension Hyperlipidemia Diabetes mellitus, type II Acute kidney injury, resolved Altered mental status, etiology unclear PLAN: Patients hypotension and dizziness have resolved. This was likely due to patient taking his medications twice. He may resume his cardiac medications at this time. Patient is stable for discharge from a cardiac perspective. Will defer to internal medicine. We will sign off. Patient to follow-up with Dr. Mckeon. Nurse practitioner note has been reviewed by physician. Signing provider agrees with the documented findings, assessment, and plan of care. Objective - Vital Signs Vital signs: Vital Signs Temp 98.7 F 07/27/20 11:05 Pulse 91 07/27/20 11:05 Resp 20 07/27/20 11:05 BP 136/86 07/27/20 11:05 Pulse Ox 94 L 07/27/20 11:05 Intake & Output 07/26/20 07/27/20 07/27/20 18:59 06:59 18:59 Intake Total 1105 100 Output Total 1500 4750 1750 Balance -995 -6264 -4509 Weight 129.7 kg Intake: Intake, IV Titration 225 Amount Sodium Chloride 0.9% 1, 225 000 ml @ 75 mls/hr IV . [id number] [facility] Rx#:[id number] Oral 880 100 Output: Urine 1500 4750 1750 Uretheral (Cantrell) 1500 Other: Voiding Method Indwelling Catheter Indwelling Catheter Indwelling Catheter - Labs CBC & Chem 7: 07/26/20 02:43 07/27/20 06:50 Labs: Abnormal Lab Results - Last 24 Hours (Table) 07/26/20 07/26/20 07/26/20 Range/Units 11:34 17:38 20:35 BUN (9-20) mg/dL Glucose (74-99) mg/dL POC Glucose (mg/dL) 117 H 138 H (75-99) mg/dL Magnesium (1.6-2.3) mg/dL TSH (0.465-4.680) mIU/L Urine Glucose (UA) 3+ H (Negative) Ur Leukocyte Esterase Large H (Negative) Urine WBC 20 H (0-5) /hpf Urine Bacteria Rare H (None) /hpf Urine Mucus Rare H (None) /hpf 07/27/20 07/27/20 Range/Units 06:50 09:41 BUN 25 H (9-20) mg/dL Glucose 107 H (74-99) mg/dL POC Glucose (mg/dL) 114 H (75-99) mg/dL Magnesium 2.6 H (1.6-2.3) mg/dL TSH 0.349 L (0.465-4.680) mIU/L Urine Glucose (UA) (Negative) Ur Leukocyte Esterase (Negative) Urine WBC (0-5) /hpf Urine Bacteria (None) /hpf Urine Mucus (None) /hpf
--- NOTE | 2020-07-27 16:09 | P.PN ---
Progress Note - Text Progress Note Date: 07/27/20 Chief Complaint: Dizzy History of presenting complaint: This is a pleasant 60-year-old patient of Dr. Hyde. Chronic stable medical conditions include diabetes mellitus type 2, hypertension, hyperlipidemia, hypothyroid. Chronic low back pain., Anxiety depression. Patient took his dog out for a walk yesterday and felt dizzy. He also noticed a heartburn central. Normally does not get reflux symptoms. Denied any perspiration shortness of breath. [place] a little bit often forgetful. Patient does use a CPAP. Patient normally has a bowel movement every day one or twice a day. But at this time is not a bowel movement for 4 days. Feels a bit distended. Has some nausea. Did throw up 2 days ago. Patient does take Motrin at home. Found to be in renal failure in the ER. Not available prior abnormal kidney function. Appetite is okay. Patient also been having urinary retention. Does a concern that he may have taken his medication twice. As he was not sure at home. Denies any obvious fever. Admitted with acute kidney injury, severe constipation, acute urinary retention, hypoosmolar hyponatremia. Hypotension felt from patient taking his medication twice. Patient put on fluid restriction. Given enema 2 which responded well. Cantrell catheter was placed. Good urine output Today-feeling a bit better. Eating some. Laying in bed. Bothered by his chronic low back pain. Physical examination: VITAL SIGNS: 100.6, 111, 24, 146/68, 92% room air GENERAL: BMI 45.4, laying in bed, awake. EYES: Pupils equal. Conjunctiva normal. HEENT: External appearance of nose and ears normal, oral cavity grossly normal. NECK: JVD not raised; masses not palpable. HEART: First and second heart sounds are normal; no edema. LUNGS: Respiratory rate normal; clear to auscultation. ABDOMEN: Soft, less distended, bowel sounds present, nontender, liver spleen not palpable, no masses palpable. PSYCH: [Alert and oriented x3; mood and affect anxious. INVESTIGATIONS, reviewed in the clinical context: Potassium 4.3 creatinine 1.19 TSH 0.349 cortisol 36 Previous testing White count 8.6 hemoglobin 15.1 platelets 197 sodium 124 potassium 4.2 creatinine 2.44 bun 35 serum osmolality 273, blood glucose 104 UA positive for glucose 3+ leukoesterase positive WBC 20 urine osmolality 226 EKG tracing personally reviewed by me-normal sinus rhythm, poor LV progression, Computed tomography scan of the brain without contrast-cerebral atrophy Chest x-ray film personally reviewed by me-no obvious infiltrate Abdominal x-ray film personally reviewed by me show-fecal stasis Abdominal [id number]-pesopygamwma-[id number] normal cortical medullary differentiation 2-D echocardiogram-EF 50-55%, moderate concentric LVH Assessment: -Acute kidney injury, in a patient who takes Motrin once or twice a day, and GIA inhibitor. He does not have a baseline creatinine available.. Patient not a rate of his previous any abnormal renal function.-Improving -Morbid obesity BMI 45.4 -Severe constipation,-responded well to enema -Hypoosmolar, hyponatremia-improved -Diabetes mellitus type 2, uncontrolled with hypoglycemia -Hyperlipidemia -Essential hypertension -Hypothyroid -Chronic low back pain -Anxiety depression not otherwise specified -Acute urinary retention -Primary osteoarthritis. Patient is due for knee surgery tomorrow. Postpone. -Hypotension upon presentation from taking his medication twice at home Plan: Doing better. Encourage be out of bed up in chair. Kidney first and improving. Follow [facility] closely.
[2020-07-27 16:38] LABS: Glucose,Whole Blood 117 mg/dL (75-99)
[2020-07-27 19:13] VITALS: BP 137/81; PULSE 92; TEMP 99.2
== END 2020-07-27 19:05 | disposition left against medical advice (07) | DRG 683 ==
LOC: EC 18:28 → 3SCARD 21:50
PROVIDERS: ADMIT Hospitalist; ATTEND Hospitalist
DX: N17.0 Acute kidney failure with tubular necrosis (principal); Z68.42 Body mass index [BMI] 45.0-49.9, adult; E87.1 Hypo-osmolality and hyponatremia; E03.9 Hypothyroidism, unspecified; E66.01 Morbid (severe) obesity due to excess calories; K21.9 Gastro-esophageal reflux disease without esophagitis; I10 Essential (primary) hypertension; E11.649 Type 2 diabetes mellitus with hypoglycemia without coma; I45.10 Unspecified right bundle-branch block; Z79.4 Long term (current) use of insulin; E78.5 Hyperlipidemia, unspecified; F41.8 Other specified anxiety disorders; I44.0 Atrioventricular block, first degree; G89.29 Other chronic pain; R33.9 Retention of urine, unspecified; Z60.2 Problems related to living alone; M19.91 Primary osteoarthritis, unspecified site; K59.09 Other constipation; I95.2 Hypotension due to drugs; T46.5X5A Adverse effect of other antihypertensive drugs, initial encounter; M54.9 Dorsalgia, unspecified; Z79.891 Long term (current) use of opiate analgesic; Z79.899 Other long term (current) drug therapy; Z88.2 Allergy status to sulfonamides; Z79.890 Hormone replacement therapy; Z87.891 Personal history of nicotine dependence; Z98.890 Other specified postprocedural states; Z80.9 Family history of malignant neoplasm, unspecified
CPT/HCPCS: 36415; 70450; 71046; 74022; 76770; 80048; 80051; 80053; 81001; 82533; 83690; 83735; 83880; 83930; 83935; 84295; 84300; 84439; 84443; 84484; 84550; 85025; 85610; 87040; 87077; 87086; 87186; 93005; 93306; 94660; 96361; 96374; 99285

== ENCOUNTER 2020-10-27 10:04 | Emergency (ER) | payer MEDICARE ==
[2020-10-27 10:11] VITALS: TEMP 98.2
--- NOTE | 2020-10-27 10:11 | ED ---
Fall HPI - General Stated Complaint: Head ache/Fall sunday Time Seen by Provider: 10/27/20 10:05 - History of Present Illness Initial Comments: 60yo male presenting today for cc of fall with headache,nausea, ear ringing and neck pain. patient states that on Sunday he fell on ice outside. he states the last thing he remembers was thinking how wet it was. then he woke up on the ground. he believes he struck the back of his head. he states he has had headache, nausea, vomiting and ear ringing since. he states he feels dizzy at times as well. He states his neck has been sore since the fall. Patient back, chest, abdominal or extremity pain/trauma. patient denies vision loss, he denies weakness or sensation deficits, denies speech changes or facial asymmetry. Patient on arrival main complaint is the headache, that he describes as throbbing all over. - Related Data Home Medications Medication Instructions Recorded Confirmed Amitriptyline HCl [Elavil] 50 mg PO BID 12/16/18 07/25/20 Atorvastatin [Lipitor] 20 mg PO DAILY 12/16/18 07/25/20 DULoxetine HCL [Cymbalta] 60 mg PO HS 12/16/18 07/25/20 Levothyroxine Sodium [Synthroid] 50 mcg PO DAILY 12/16/18 07/25/20 Sertraline [Zoloft] 200 mg PO DAILY 12/16/18 07/25/20 Testosterone Cypionate 120 mg IM WE 12/16/18 07/25/20 [Depo-Testosterone] amLODIPine [Norvasc] 10 mg PO DAILY 12/16/18 07/25/20 hydrALAZINE HCL [Apresoline] 50 mg PO BID 12/16/18 07/25/20 metFORMIN HCL 1,000 mg PO BID 12/16/18 07/25/20 oxyCODONE-APAP 10-325MG [Percocet 1 tab PO TID 12/16/18 07/25/20 10-325 mg] Gabapentin 600 mg PO TID 07/23/20 07/25/20 Insulin Degludec [Tresiba] 70 units SQ HS 07/23/20 07/25/20 Ibuprofen [Motrin] 800 mg PO BID PRN 07/25/20 07/25/20 Lactulose 10 gm PO BID PRN 07/25/20 07/25/20 Pioglitazone [Actos] 15 mg PO DAILY 07/25/20 07/25/20 cloNIDine HCL [Catapres] 0.2 mg PO BID 07/25/20 07/25/20 lisinopriL [Zestril] 10 mg PO DAILY 07/25/20 07/25/20 Allergies Allergy/AdvReac Type Severity Reaction Status Date / Time Sulfa (Sulfonamide Allergy Swelling Verified 07/25/20 22:01 Antibiotics) Review of Systems ROS Statement: Those systems with pertinent positive or pertinent negative responses have been documented in the HPI. ROS Other: All systems not noted in ROS Statement are negative. Past Medical History Past Medical History: Diabetes Mellitus, Hyperlipidemia, Hypertension, Thyroid Disorder Additional Past Medical History / Comment(s): chronic back pain History of Any Multi-Drug Resistant Organisms: None Reported Past Surgical History: Orthopedic Surgery Additional Past Surgical History / Comment(s): right knee surgery Past Anesthesia/Blood Transfusion Reactions: No Reported Reaction Past Psychological History: Anxiety, Depression Smoking Status: Former smoker - Past Family History Mother Family Medical History: Cancer General Exam - General Exam Comments Initial Comments: General: The patient is awake and alert, in no distress Eye: +3 mm pupils are equal, round and reactive to light, extra-ocular mo vements are intact. No nystagmus. There is normal conjunctiva bilaterally. No signs of icterus. Ears, nose, mouth and throat: There are moist mucous membranes and no oral lesions. No blood in EAC or TM identified. Neck: The neck is supple, there is no tenderness or JVD. Some paraspine and midlines tenderness to cervical spine palpation. Cardiovascular: There is a regular rate and rhythm. No murmur, rub or gallop is appreciated. Respiratory: Lungs are clear to auscultation, respirations are non-labored, breath sounds are equal. No wheezes, stridor, rales, or rhonchi. Gastrointestinal: Soft, non-distended, non-tender abdomen without masses or organomegaly noted. There is no rebound or guarding present. Musculoskeletal: Normal ROM, no tenderness. Sensation intact. Pulses equal bilaterally 2+. Neurological: A&O x 3. CN II-XII intact, memory intact to immediately, intermediate and longshore equipment operator recall. Able to follow simple verbal. Able to name a common object. High quality, labial (pa) and lingual (la) speech. Low quality posterior pharynx/larynx (ga) voice sounds. Able to express general knowledge. No hemineglect or inattention noted. Finger agnosia (-) and spatially oriented.Light touch sensation present over the face, chest, abdomen, back, UE bilaterally, and LE bilaterally. Able to localize point during point localization b/l and extinction. No visible bulk atrophy, hypertrophy, fascicul ations, or myoclonus of the UE or LE b/l. Full PROM in UE and LE b/l. Bilateral muscle strength 5/5 for the following muscles: deltoid, biceps, triceps, brachioradialis, wrist extensors/flexor, hamstrings, quadriceps, feet dorsiflexors/plantar flexors. There was some restriction of strength in the r ight leg secondary to recent knee surgery, he state she cannot pressure firmly against pressure secondary to discomfort so exam in limited. strength overall appears intact. Finger to nose, finger to the examiners finger, and heel to vera coordinated and accurate b/l. Coordinated and even demonstration of hand flip, finger to thumb. (-) pronator drift. Skin: Skin is warm and dry and no rashes or lesions are noted. No raccoon or Garcia sign. Psychiatric: Cooperative, appropriate mood & affect, normal judgment. Course Vital Signs 10/27/20 10:06 Temperature 98.2 F Pulse Rate 88 Respiratory 19 Rate Blood Pressure 173/81 O2 Sat by Pulse 99 Oximetry Medical Decision Making - Medical Decision Making 60yo male with hx of fall 4 days ago. LOC. no thinners. no focal deficits. pt has a subdural and possible epidural on CT left sided. pt cc headache, dizzines, nausea, vomiting, ear rinning. pt given dilaudid, zofran and m eclizine. pt will be transferred to [facility] for her neurosurgery consultation. Dr. Flaherty accepted transfer after speaking to both the trauma and neurosurgeon. Patient is agreeable to transfer to [facility] is aware that he is able to go to other facilities but is accepted to going to nearest facility. Patient discharged stable no neurological changes. Dr Lopez is agreeable to care plan and transfer. - Lab Data Result diagrams: 10/27/20 10:39 10/27/20 10:39 Lab Results 10/27/20 10/27/20 10/27/20 Range/Units 10:39 10:39 10:39 WBC 6.8 (3.8-10.6) k/uL RBC 6.00 H (4.30-5.90) m/uL Hgb 17.5 (13.0-17.5) gm/dL Hct 52.2 (39.0-53.0) % MCV 87.0 (80.0-100.0) fL MCH 29.2 (25.0-35.0) pg MCHC 33.5 (31.0-37.0) g/dL RDW 14.5 (11.5-15.5) % Plt Count 155 (150-450) k/uL MPV 6.9 Neutrophils % 81 % Lymphocytes % 11 % Monocytes % 6 % Eosinophils % 1 % Basophils % 1 % Neutrophils # 5.5 (1.3-7.7) k/uL Lymphocytes # 0.7 L (1.0-4.8) k/uL Monocytes # 0.4 (0-1.0) k/uL Eosinophils # 0.1 (0-0.7) k/uL Basophils # 0.1 (0-0.2) k/uL PT 10.5 (9.0-12.0) sec INR 1.0 (<1.2) APTT 24.7 (22.0-30.0) sec Sodium 136 L (137-145) mmol/L Potassium 4.3 (3.5-5.1) mmol/L Chloride 101 (98-107) mmol/L Carbon Dioxide 26 (22-30) mmol/L Anion Gap 9 mmol/L BUN 13 (9-20) mg/dL Creatinine 0.78 (0.66-1.25) mg/dL Est GFR (CKD-EPI)AfAm >90 (>60 ml/min/1.73 sqM) Est GFR (CKD-EPI)NonAf >90 (>60 ml/min/1.73 sqM) Glucose 193 H (74-99) mg/dL Calcium 9.8 (8.4-10.2) mg/dL Total Bilirubin 0.8 (0.2-1.3) mg/dL AST 24 (17-59) U/L ALT 27 (4-49) U/L Alkaline Phosphatase 75 (38-126) U/L Total Protein 7.9 (6.3-8.2) g/dL Albumin 4.6 (3.5-5.0) g/dL Disposition Clinical Impression: Headache, Dizziness, Subdural bleeding, Epidural hemorrhage, Neck pain Disposition: OTHER INSTITUTION NOT DEFINED Condition: Serious Is patient prescribed a controlled substance at d/c from ED?: No Referrals: Elvin Hyde MD [Primary Care Provider] - 1-2 days Time of Disposition: 10:51 - Out of Hospital Transfer - Req. Specs Out of Hospital Transfer - Requested Specifics: Other Emergency Center (Dr Flaherty)
[2020-10-27] MEDS ORDERED: MECLIZINE 12.5 MG TAB PO STA (10:33)
[2020-10-27] MEDS ORDERED: ONDANSETRON 4 MG/2 ML VIAL IVP STA (10:33)
[2020-10-27] MEDS ORDERED: HYDROmorphone 0.5 MG/0.5 ML SYRINGE IVP STA ×2 (10:33→11:43)
--- NOTE | 2020-10-27 10:53 | CT ---
EXAMINATION TYPE: CT brain angelia squires con DATE OF EXAM: 10/27/2020 COMPARISON: CT brain 07/25/2020 HISTORY: Fall with LOC 4 days ago, THACKER CT DLP: 1929.1 mGycm, Automated exposure control for dose reduction was used. CONTRAST: Patient injected with 0 mL of Isovue 300. CT of the brain is performed utilizing 3 mm thick sections through the posterior fossa and 3 mm thick sections through the remaining calvarium. Study is performed within 24 hours of arrival to the hospital. There is an acute to subacute left subdural hematoma with a depth averaging 0.8 cm. This has mild di splacement of the adjacent brain extending from the frontal region to the occipital region near the v ertex. Slightly more focal area of increased density in the extra-axial space measures 0.9 cm in dept h. This is likely related to the patient's left subdural hematoma adjacent to the proximal left tempo ral lobe. Small epidural however should be considered at this level. There is slight increased density along the tentorium. Small amount of subdural hemorrhage could be c onsidered. This could be related to the density of the tentorium. No mass lesion is evident. Minimal midline shift towards the right of approximately 0.4 cm may be pre sent. There is mild compression of the left lateral ventricle. Quadrigeminal plate and ambient cister n are patent. Third ventricle is just right of midline. Fourth ventricle appears normal and midline. Foramen magnum appears normal.. Mild compression of the brain adjacent to the subdural hematoma is ev ident. No acute infarcts are evident. Ventricles and sulci are otherwise appropriate for the patient age. There is an air-fluid level within the right maxillary sinus. Mucosal thickenings within ethmoid air cells. IMPRESSIONS: 1. Large subdural hematoma measuring approximately 0.8 cm in depth extending from the left frontal re gion to the left occipital region towards the vertex. 2. There is slightly more focal hyperintensity measuring 0.9 cm in depth adjacent to the proximal tem poral lobe most likely related to the patient's acute to subacute subdural hematoma. Small epidural h ematoma is not excluded. 3. Small amount of subdural fluid may be adjacent to the tentorium without significant mass effect on the adjacent brain. 4. Mild midline shift towards the right. There is mass effect on the brain adjacent to the subdural h ematoma. 5. Report was called to the emergency room [facility] by Dr. Fang by telephone at the time of inter pretation. 1048 hours 10/27/2020 CT cervical spine. COMPARISON: None CT of the cervical spine is performed in the axial plane at 2 mm thick sections. Reconstructed image s in the coronal, and sagittal plane are reviewed on the computer. No acute fractures are evident. Vertebral body alignment is normal. Disc heights are preserved. Vertebral body heights are preserved. No spinal canal stenosis is evident. Anterior vertebral body spurring is present C2 and C5. Neural foramen appear patent IMPRESSIONS: 1. No acute osseous abnormality cervical spine.
[2020-10-27 10:56] LABS: Basophils # (A) 0.1 k/uL (0-0.2); Basophils % (A) 1 %; Eosinophils # (A) 0.1 k/uL (0-0.7); Eosinophils % (A) 1 %; HCT 52.2 % (39.0-53.0); HGB 17.5 gm/dL (13.0-17.5); Lymphocytes # (A) 0.7 k/uL (1.0-4.8); Lymphocytes % (A) 11 %; MCH 29.2 pg (25.0-35.0); MCHC 33.5 g/dL (31.0-37.0); Mean Platelet Volume 6.9; Monocytes # (A) 0.4 k/uL (0-1.0); Monocytes % (A) 6 %; Neutrophils # (A) 5.5 k/uL (1.3-7.7); Neutrophils % (A) 81 %; Platelet Count 155 k/uL (150-450); RDW 14.5 % (11.5-15.5); WBC 6.8 k/uL (3.8-10.6)
[2020-10-27 11:01] LABS: ALT 27 U/L (4-49); AST 24 U/L (17-59); African American GFR (CKD) >90 (>60 ml/min/1.73 sqM); Albumin 4.6 g/dL (3.5-5.0); Alkaline Phosphatase 75 U/L (38-126); Anion Gap 9 mmol/L; Blood Urea Nitrogen 13 mg/dL (9-20); Calcium 9.8 mg/dL (8.4-10.2); Carbon Dioxide 26 mmol/L (22-30); Chloride 101 mmol/L (98-107); Glucose 193 mg/dL (74-99); Non-African American GFR(CKD) >90 (>60 ml/min/1.73 sqM); Potassium 4.3 mmol/L (3.5-5.1); Sodium 136 mmol/L (137-145); Total Bilirubin 0.8 mg/dL (0.2-1.3); Total Protein 7.9 g/dL (6.3-8.2)
[2020-10-27 11:04] LABS: Partial Thromboplastin Time 24.7 sec (22.0-30.0); Prothrombin Time 10.5 sec (9.0-12.0)
[2020-10-27 11:56] VITALS: BP 173/85; PULSE 77; RESP 18
== END 2020-10-27 12:24 | disposition other institution (70) ==
LOC: EC 10:04
DX: S06.5X9A Traumatic subdural hemorrhage with loss of consciousness of unspecified duration, initial encounter (principal); S06.4X9A Epidural hemorrhage with loss of consciousness of unspecified duration, initial encounter; M54.2 Cervicalgia; E07.9 Disorder of thyroid, unspecified; R42 Dizziness and giddiness; I10 Essential (primary) hypertension; E78.5 Hyperlipidemia, unspecified; E11.9 Type 2 diabetes mellitus without complications; G89.29 Other chronic pain; M54.9 Dorsalgia, unspecified; F41.9 Anxiety disorder, unspecified; F32.9 Major depressive disorder, single episode, unspecified; Z79.4 Long term (current) use of insulin; Z79.890 Hormone replacement therapy; Z79.899 Other long term (current) drug therapy; Z79.891 Long term (current) use of opiate analgesic; Z88.2 Allergy status to sulfonamides; Z87.891 Personal history of nicotine dependence; W00.0XXA Fall on same level due to ice and snow, initial encounter; Y92.89 Other specified places as the place of occurrence of the external cause
CPT/HCPCS: 36415; 80053; 85025; 85610; 85730; 72125; 70450; 99285; 96374; 96375; 96376; L0120; J2405; J1170

== ENCOUNTER 2020-11-07 04:07 | Emergency (ER) | payer MEDICARE ==
[2020-11-07 04:15] VITALS: TEMP 99
[2020-11-07] MEDS ORDERED: ONDANSETRON ODT 4 MG TAB PO STA (04:19)
[2020-11-07] MEDS ORDERED: HYDROcodone/APAP 5-325MG 1 EACH TAB PO STA (04:19)
[2020-11-07] MEDS ORDERED: PROCHLORPERAZINE 5 MG TAB PO STA (04:19)
--- NOTE | 2020-11-07 04:20 | ED ---
Recheck HPI - General Chief Complaint: Headache Stated Complaint: Nausea, headache Time Seen by Provider: 11/07/20 04:09 Source: patient, EMS, RN notes reviewed, old records reviewed Mode of arrival: EMS Limitations: no limitations - History of Present Illness Initial Comments: 1-year-old male DF for evaluation patient Dese for evaluation of headache in creased headache and headache that his been persistent from prior. No new trauma. Patient does take severe pain medications for back pain and these headaches which are currently helping his headache. Increased nausea and persistent nausea. No neurological complaints MD Complaint: other (Increased headache from prior) -: week(s) Returns Today for: persistent/worsening pain related to initial visit Symptoms Since Prior Visit: worsening pain Context: ran out of medication Associated Symptoms: nausea Treatments Prior to Arrival: Given Pain Meds on - Related Data Home Medications Medication Instructions Recorded Confirmed Amitriptyline HCl [Elavil] 50 mg PO BID 12/16/18 07/25/20 Atorvastatin [Lipitor] 20 mg PO DAILY 12/16/18 07/25/20 DULoxetine HCL [Cymbalta] 60 mg PO HS 12/16/18 07/25/20 Levothyroxine Sodium [Synthroid] 50 mcg PO DAILY 12/16/18 07/25/20 Sertraline [Zoloft] 200 mg PO DAILY 12/16/18 07/25/20 Testosterone Cypionate 120 mg IM WE 12/16/18 07/25/20 [Depo-Testosterone] amLODIPine [Norvasc] 10 mg PO DAILY 12/16/18 07/25/20 hydrALAZINE HCL [Apresoline] 50 mg PO BID 12/16/18 07/25/20 metFORMIN HCL 1,000 mg PO BID 12/16/18 07/25/20 oxyCODONE-APAP 10-325MG [Percocet 1 tab PO TID 12/16/18 07/25/20 10-325 mg] Gabapentin 600 mg PO TID 07/23/20 07/25/20 Insulin Degludec [Tresiba] 70 units SQ HS 07/23/20 07/25/20 Ibuprofen [Motrin] 800 mg PO BID PRN 07/25/20 07/25/20 Lactulose 10 gm PO BID PRN 07/25/20 07/25/20 Pioglitazone [Actos] 15 mg PO DAILY 07/25/20 07/25/20 cloNIDine HCL [Catapres] 0.2 mg PO BID 07/25/20 07/25/20 lisinopriL [Zestril] 10 mg PO DAILY 07/25/20 07/25/20 Allergies Allergy/AdvReac Type Severity Reaction Status Date / Time Sulfa (Sulfonamide Allergy Swelling Verified 07/25/20 22:01 Antibiotics) Review of Systems ROS Statement: Those systems with pertinent positive or pertinent negative responses have been documented in the HPI. ROS Other: All systems not noted in ROS Statement are negative. Past Medical History Past Medical History: Diabetes Mellitus, Hyperlipidemia, Hypertension, Thyroid Disorder Additional Past Medical History / Comment(s): chronic back pain History of Any Multi-Drug Resistant Organisms: None Reported Past Surgical History: Orthopedic Surgery Additional Past Surgical History / Comment(s): right knee surgery Past Anesthesia/Blood Transfusion Reactions: No Reported Reaction Past Psychological History: Anxiety, Depression Smoking Status: Former smoker Past Alcohol Use History: None Reported Past Drug Use History: None Reported - Past Family History Mother Family Medical History: Cancer General Exam Limitations: no limitations General appearance: alert, in no apparent distress Head exam: Present: atraumatic, normocephalic, normal inspection Eye exam: Present: normal appearance, PERRL, EOMI. Absent: scleral icterus, conjunctival injection, periorbital swelling ENT exam: Present: normal exam, mucous membranes moist Neck exam: Present: normal inspection. Absent: tenderness, meningismus, lymphadenopathy Respiratory exam: Present: normal lung sounds bilaterally. Absent: respiratory distress, wheezes, rales, rhonchi, stridor Cardiovascular Exam: Present: regular rate, normal rhythm, normal heart sounds. Absent: systolic murmur, diastolic murmur, rubs, gallop, clicks GI/Abdominal exam: Present: soft, normal bowel sounds. Absent: distended, tenderness, guarding, rebound, rigid Extremities exam: Present: normal inspection, full ROM, normal capillary refill. Absent: tenderness, pedal edema, joint swelling, calf tenderness Back exam: Present: normal inspection Neurological exam: Present: alert, oriented X3, CN II-XII intact Psychiatric exam: Present: normal affect, normal mood Skin exam: Present: warm, dry, intact, normal color. Absent: rash Course Vital Signs 01/17/21 01/17/21 04:10 05:11 Temperature 99 F Pulse Rate 84 78 Respiratory 20 18 Rate Blood Pressure 163/89 148/84 O2 Sat by Pulse 96 97 Oximetry - Reevaluation(s) Reevaluation #1: 11/07/20 05:23 Medical record is reviewed Reevaluation #2: 11/07/20 05:23 [facility] Reevaluation #3: 11/07/20 05:23 Patient having severe persistent headache here in the ER - Consultations Consultation #1: Spoke with Jyothi Teran were agrees to accept transfer of this patient Medical Decision Making - Medical Decision Making 60 male to the ER F for evaluation severe headache headache is mildly control currently but he has have apparent worsening bleed, increased redness midline shift from prior. 3 mm to 6 mm. This does to appear to be in subacute component - Lab Data Lab Results 11/07/20 Range/Units 04:21 POC Glucose (mg/dL) 153 H (75-99) mg/dL POC Glu Mft ID Sepideh Rush - Radiology Data Radiology results: report reviewed (CT brain does show possible worsening subdu ral bleeding with increased midline shift), image reviewed Critical Care Time Critical Care Time: Yes Total Critical Care Time: 31 Disposition Clinical Impression: Subdural bleeding, Increased bleeding, Headache Disposition: OTHER INSTITUTION NOT DEFINED Condition: Serious Is patient prescribed a controlled substance at d/c from ED?: No Referrals: Elvin Hyde MD [Primary Care Provider] - 1-2 days - Out of Hospital Transfer - Req. Specs Out of Hospital Transfer - Requested Specifics: Other Emergency Center (Jyothi Teran)
[2020-11-07] MEDS ORDERED: METOCLOPRAMIDE 5 MG/ML 2 ML VIAL IVP STA (04:21)
[2020-11-07] MEDS ORDERED: diphenhydrAMINE 50 MG/ML 1 ML VIAL IVP STA (04:21)
[2020-11-07] MEDS ORDERED: ONDANSETRON 4 MG/2 ML VIAL IVP STA (04:21)
[2020-11-07] MEDS ORDERED: MORPHINE SULFATE 4 MG/ML SYRINGE IVP STA (04:21)
[2020-11-07 04:33] LABS: Glucose,Whole Blood 153 mg/dL (75-99)
[2020-11-07 05:11] VITALS: PULSE 78; RESP 18
--- NOTE | 2020-11-07 05:15 | CT ---
EXAM: CT Head Without Intravenous Contrast CLINICAL HISTORY: ITS.REASON CT Reason: matamoros TECHNIQUE: Axial computed tomography images of the head/brain without intravenous contrast. CTDI is 49.27 mGy and DLP is 1180.4 mGy-cm. This CT exam was performed using one or more of the following dose reduction techniques: automated exposure control, adjustment of the mA and/or kV according to patient size, and/or use of iterative reconstruction technique. COMPARISON: 10/27/20 IMPRESSION: Redemonstration of left holohemispheric subdural hemorrhage, mostly chronic with less acute component. However collection is slightly thicker than previously and there is worsened left to right midline shift measuring 6 mm, previously 3 mm.
[2020-11-07] MEDS ORDERED: SODIUM CHLORIDE 0.9% 1,000 ML IV STA (05:18)
[2020-11-07] MEDS ORDERED: HYDROmorphone 1 MG/ML 1 ML SYRINGE IVP STA (05:18)
[2020-11-07 05:30] LABS: Basophils % (A) 0 %; Eosinophils % (A) 0 %; HGB 18.4 gm/dL (13.0-17.5); Lymphocytes # (A) 1.4 k/uL (1.0-4.8); Lymphocytes % (A) 13 %; MCH 28.1 pg (25.0-35.0); MCHC 32.9 g/dL (31.0-37.0); MCV 85.3 fL (80.0-100.0); Mean Platelet Volume 7.4; Monocytes # (A) 0.6 k/uL (0-1.0); Monocytes % (A) 6 %; Neutrophils # (A) 8.1 k/uL (1.3-7.7); Neutrophils % (A) 79 %; Platelet Count 297 k/uL (150-450); RBC 6.56 m/uL (4.30-5.90); RDW 14.2 % (11.5-15.5); WBC 10.3 k/uL (3.8-10.6)
[2020-11-07 05:40] LABS: ALT 38 U/L (4-49); AST 24 U/L (17-59); African American GFR (CKD) >90 (>60 ml/min/1.73 sqM); Albumin 4.4 g/dL (3.5-5.0); Alkaline Phosphatase 80 U/L (38-126); Anion Gap 11 mmol/L; Blood Urea Nitrogen 18 mg/dL (9-20); Calcium 9.7 mg/dL (8.4-10.2); Carbon Dioxide 23 mmol/L (22-30); Chloride 98 mmol/L (98-107); Glucose 155 mg/dL (74-99); Non-African American GFR(CKD) >90 (>60 ml/min/1.73 sqM); Phosphorus 3.5 mg/dL (2.5-4.5); Potassium 4.9 mmol/L (3.5-5.1); Sodium 132 mmol/L (137-145); Total Bilirubin 1.2 mg/dL (0.2-1.3); Total Protein 7.8 g/dL (6.3-8.2)
[2020-11-07 05:43] LABS: INR 1.1 (<1.2); Partial Thromboplastin Time 24.3 sec (22.0-30.0); Prothrombin Time 11.3 sec (9.0-12.0)
[2020-11-07 06:19] VITALS: BP 158/78
== END 2020-11-07 06:43 | disposition other institution (70) ==
LOC: EC 04:07
DX: I62.00 Nontraumatic subdural hemorrhage, unspecified (principal); M54.9 Dorsalgia, unspecified; F32.9 Major depressive disorder, single episode, unspecified; F41.9 Anxiety disorder, unspecified; E11.9 Type 2 diabetes mellitus without complications; E78.5 Hyperlipidemia, unspecified; I10 Essential (primary) hypertension; E07.9 Disorder of thyroid, unspecified; Z79.4 Long term (current) use of insulin; Z79.890 Hormone replacement therapy; Z79.899 Other long term (current) drug therapy; Z88.2 Allergy status to sulfonamides; Z87.891 Personal history of nicotine dependence
CPT/HCPCS: 36415; 80053; 83735; 84100; 84443; 85025; 85610; 85730; 70450; 99291; 96374; 96375 ×3; 96361; J2270; J1200; J2765; J1170

== ENCOUNTER 2020-11-14 11:57 | Emergency (ER) | payer MEDICARE ==
[2020-11-14 12:12] VITALS: RESP 18; TEMP 98
--- NOTE | 2020-11-14 12:12 | ED ---
General Adult HPI - General Chief complaint: Recheck/Abnormal Lab/Rx Stated complaint: AMS Time Seen by Provider: 11/14/20 12:10 Source: patient, EMS Mode of arrival: EMS Limitations: no limitations - History of Present Illness Initial comments: Patient presents the ED by ambulance for evaluation. Patient recently had a subdural hematoma drained at [facility] (within the past week). He states that he was discharged home about 4-5 days ago, and he states that he has developed an increasing left-sided headache since then. Patient also states that he has been nauseated and has been vomiting. Patient also states that he feels somewhat confused and dizzy. Patient states that he "just feels that crap". Patient denies trauma or injury, fever or chills, focal numbness/weakness/neuro deficit, visual changes, neck pain or stiffness, chest pain, dyspnea, cough or cold symptoms, palpitations, syncope, abdominal pain, diarrhea or constipation, bloody or melanotic stool, hematemesis, dysuria/hematuria/urinary frequency/urinary symptoms, or any other symptoms or complaints. - Related Data Home Medications Medication Instructions Recorded Confirmed Amitriptyline HCl [Elavil] 50 mg PO BID 12/16/18 07/25/20 Atorvastatin [Lipitor] 20 mg PO DAILY 12/16/18 07/25/20 DULoxetine HCL [Cymbalta] 60 mg PO HS 12/16/18 07/25/20 Levothyroxine Sodium [Synthroid] 50 mcg PO DAILY 12/16/18 07/25/20 Sertraline [Zoloft] 200 mg PO DAILY 12/16/18 07/25/20 Testosterone Cypionate 120 mg IM WE 12/16/18 07/25/20 [Depo-Testosterone] amLODIPine [Norvasc] 10 mg PO DAILY 12/16/18 07/25/20 hydrALAZINE HCL [Apresoline] 50 mg PO BID 12/16/18 07/25/20 metFORMIN HCL 1,000 mg PO BID 12/16/18 07/25/20 oxyCODONE-APAP 10-325MG [Percocet 1 tab PO TID 12/16/18 07/25/20 10-325 mg] Gabapentin 600 mg PO TID 07/23/20 07/25/20 Insulin Degludec [Tresiba] 70 units SQ HS 07/23/20 07/25/20 Ibuprofen [Motrin] 800 mg PO BID PRN 07/25/20 07/25/20 Lactulose 10 gm PO BID PRN 07/25/20 07/25/20 Pioglitazone [Actos] 15 mg PO DAILY 07/25/20 07/25/20 cloNIDine HCL [Catapres] 0.2 mg PO BID 07/25/20 07/25/20 lisinopriL [Zestril] 10 mg PO DAILY 07/25/20 07/25/20 Allergies Allergy/AdvReac Type Severity Reaction Status Date / Time Sulfa (Sulfonamide Allergy Swelling Verified 11/14/20 12:06 Antibiotics) Review of Systems ROS Statement: Those systems with pertinent positive or pertinent negative responses have been documented in the HPI. ROS Other: All systems not noted in ROS Statement are negative. Past Medical History Past Medical History: CVA/TIA, Diabetes Mellitus, Hyperlipidemia, Hypertension, Thyroid Disorder Additional Past Medical History / Comment(s): chronic back pain History of Any Multi-Drug Resistant Organisms: None Reported Past Surgical History: Orthopedic Surgery Additional Past Surgical History / Comment(s): right knee surgery Past Anesthesia/Blood Transfusion Reactions: No Reported Reaction Past Psychological History: Anxiety, Depression Smoking Status: Former smoker Past Alcohol Use History: None Reported Past Drug Use History: None Reported - Past Family History Mother Family Medical History: Cancer General Exam Limitations: no limitations General appearance: alert, in no apparent distress Head exam: Present: other (Left parietal surgical wound with jairo in place) Eye exam: Present: normal appearance, PERRL, EOMI ENT exam: Present: mucous membranes dry Neck exam: Present: other (Trachea is in midline). Absent: tenderness, meningismus Respiratory exam: Present: normal lung sounds bilaterally. Absent: respiratory distress, wheezes, rales, rhonchi, stridor Cardiovascular Exam: Present: regular rate, normal rhythm, normal heart sounds, other (Normal radial pulses bilaterally) GI/Abdominal exam: Present: soft. Absent: distended, tenderness, guarding Extremities exam: Absent: tenderness, pedal edema, calf tenderness Neurological exam: Present: alert, oriented X3, CN II-XII intact. Absent: motor sensory deficit Psychiatric exam: Present: normal affect, normal mood Skin exam: Present: warm, dry, normal color Course Vital Signs 11/14/20 11/14/20 12:02 13:32 Temperature 98 F Pulse Rate 77 79 Respiratory 18 18 Rate Blood Pressure 159/89 162/87 O2 Sat by Pulse 98 97 Oximetry - Reevaluation(s) Reevaluation #1: 11/14/20 13:54 Case, H&P and CT findings were discussed with Dr. Amaya (neurointerventionalist). He recommends transferring the patient to the [facility] ED. He also recommends starting the patient on a Cardene IV drip with instructions to keep the patient's SBP < 160. He has no further recommendations at this time. 11/14/20 13:59 Case, H&P and CT findings were discussed with Dr. Cowan (ED physician at [facility]). He accepts ambulance transfer to the [facility] ED. He has no further recommendations at this time. 11/14/20 14:06 Patient remains alert and breathing comfortably. Patient states that his pain/symptoms have improved with ED treatment. Patient denies development of any new symptoms while in the ED. Patient is aware of his test results and my discussions as above. Patient agrees with ambulance transfer to [facility] ED at this time. EKG Findings - EKG Comments: EKG Findings:: Sinus rhythm with first-degree AV block, single PAC, ventricular rate of 85 bpm, [place] interval of 228 ms, normal QRS duration, normal QT interval, leftward axis, incomplete right bundle branch block, no acute ST or T-wave ab normality, no significant change when compared to 07/25/2020 EKG Medical Decision Making - Medical Decision Making Patient's head CT shows that the patient's subdural hematoma has increased in size slightly despite interval surgery with an acute versus subacute component. Patient has been alert and breathing comfortably while in the ED. Patient has a normal/nonfocal neurological exam in the ED. Patient's blood pressure is being managed with a Cardene IV drip with titration parameters to keep the SBP less than 160. Patient will be transferred by ambulance to [facility] where he has been getting his neurosurgical care. - Lab Data Result diagrams: 11/14/20 12:21 11/14/20 12:21 Lab Results 11/14/20 11/14/20 11/14/20 Range/Units 12:21 12:21 12:21 WBC 9.5 (3.8-10.6) k/uL RBC 6.53 H (4.30-5.90) m/uL Hgb 18.8 H (13.0-17.5) gm/dL Hct 54.7 H (39.0-53.0) % MCV 83.7 (80.0-100.0) fL MCH 28.7 (25.0-35.0) pg MCHC 34.3 (31.0-37.0) g/dL RDW 14.1 (11.5-15.5) % Plt Count 307 (150-450) k/uL MPV 6.5 Neutrophils % 80 % Lymphocytes % 12 % Monocytes % 6 % Eosinophils % 0 % Basophils % 2 % Neutrophils # 7.6 (1.3-7.7) k/uL Lymphocytes # 1.1 (1.0-4.8) k/uL Monocytes # 0.5 (0-1.0) k/uL Eosinophils # 0.0 (0-0.7) k/uL Basophils # 0.2 (0-0.2) k/uL PT 11.3 (9.0-12.0) sec INR 1.1 (<1.2) APTT 25.1 (22.0-30.0) sec Sodium 133 L (137-145) mmol/L Potassium 3.9 (3.5-5.1) mmol/L Chloride 93 L (98-107) mmol/L Carbon Dioxide 22 (22-30) mmol/L Anion Gap 18 mmol/L BUN 18 (9-20) mg/dL Creatinine 0.70 (0.66-1.25) mg/dL Est GFR (CKD-EPI)AfAm >90 (>60 ml/min/1.73 sqM) Est GFR (CKD-EPI)NonAf >90 (>60 ml/min/1.73 sqM) Glucose 144 H (74-99) mg/dL POC Glucose (mg/dL) (75-99) mg/dL POC Glu Geographic Information Systems Manager ID Calcium 9.8 (8.4-10.2) mg/dL Total Bilirubin 1.0 (0.2-1.3) mg/dL AST 27 (17-59) U/L ALT 31 (4-49) U/L Alkaline Phosphatase 93 (38-126) U/L Troponin I (0.000-0.034) ng/mL Total Protein 8.0 (6.3-8.2) g/dL Albumin 4.4 (3.5-5.0) g/dL 11/14/20 11/14/20 Range/Units 12:21 12:35 WBC (3.8-10.6) k/uL RBC (4.30-5.90) m/uL Hgb (13.0-17.5) gm/dL Hct (39.0-53.0) % MCV (80.0-100.0) fL MCH (25.0-35.0) pg MCHC (31.0-37.0) g/dL RDW (11.5-15.5) % Plt Count (150-450) k/uL MPV Neutrophils % % Lymphocytes % % Monocytes % % Eosinophils % % Basophils % % Neutrophils # (1.3-7.7) k/uL Lymphocytes # (1.0-4.8) k/uL Monocytes # (0-1.0) k/uL Eosinophils # (0-0.7) k/uL Basophils # (0-0.2) k/uL PT (9.0-12.0) sec INR (<1.2) APTT (22.0-30.0) sec Sodium (137-145) mmol/L Potassium (3.5-5.1) mmol/L Chloride (98-107) mmol/L Carbon Dioxide (22-30) mmol/L Anion Gap mmol/L BUN (9-20) mg/dL Creatinine (0.66-1.25) mg/dL Est GFR (CKD-EPI)AfAm (>60 ml/min/1.73 sqM) Est GFR (CKD-EPI)NonAf (>60 ml/min/1.73 sqM) Glucose (74-99) mg/dL POC Glucose (mg/dL) 128 H (75-99) mg/dL POC Glu Geographic Information Systems Manager ID Alejandro, Agatha Calcium (8.4-10.2) mg/dL Total Bilirubin (0.2-1.3) mg/dL AST (17-59) U/L ALT (4-49) U/L Alkaline Phosphatase (38-126) U/L Troponin I 0.020 (0.000-0.034) ng/mL Total Protein (6.3-8.2) g/dL Albumin (3.5-5.0) g/dL - Radiology Data Radiology results: report reviewed (Noncontrast head CT: Left-sided extra-axial fluid collection slightly increased in size from prior study despite interval surgery, suspect acute and/or more likely subacute on background more chronic hemorrhage, midline shift stable or improved, no new hydrocephalus), image reviewed (Chest x-ray: no acute process) Critical Care Time Critical Care Time: Yes (Subdural hematoma) Total Critical Care Time: 45 Disposition Clinical Impression: Subdural hematoma, Headache, Vomiting Disposition: OTHER INSTITUTION NOT DEFINED Condition: Stable Is patient prescribed a controlled substance at d/c from ED?: No Referrals: Elvin Hyde MD [Primary Care Provider] - 1-2 days Time of Disposition: 14:00 - Out of Hospital Transfer - Req. Specs Out of Hospital Transfer - Requested Specifics: Other Emergency Center ([facility] ED)
[2020-11-14] MEDS ORDERED: SODIUM CHLORIDE 0.9% 1,000 ML IV ONE (12:18)
[2020-11-14] MEDS ORDERED: MORPHINE SULFATE 4 MG/ML SYRINGE IVP STA (12:19)
[2020-11-14] MEDS ORDERED: ONDANSETRON 4 MG/2 ML VIAL IVP STA ×2 (12:19→14:26)
[2020-11-14 12:38] LABS: Glucose,Whole Blood 128 mg/dL (75-99)
[2020-11-14 12:40] LABS: Basophils # (A) 0.2 k/uL (0-0.2); Basophils % (A) 2 %; Eosinophils % (A) 0 %; HCT 54.7 % (39.0-53.0); HGB 18.8 gm/dL (13.0-17.5); Lymphocytes # (A) 1.1 k/uL (1.0-4.8); Lymphocytes % (A) 12 %; MCH 28.7 pg (25.0-35.0); MCHC 34.3 g/dL (31.0-37.0); MCV 83.7 fL (80.0-100.0); Mean Platelet Volume 6.5; Monocytes # (A) 0.5 k/uL (0-1.0); Monocytes % (A) 6 %; Neutrophils # (A) 7.6 k/uL (1.3-7.7); Neutrophils % (A) 80 %; Platelet Count 307 k/uL (150-450); RBC 6.53 m/uL (4.30-5.90); RDW 14.1 % (11.5-15.5); WBC 9.5 k/uL (3.8-10.6)
--- NOTE | 2020-11-14 12:45 | XR ---
EXAMINATION TYPE: XR chest 1V portable DATE OF EXAM: 11/14/2020 COMPARISON: Chest x-ray July 25, 2020 HISTORY: Confusion and weakness. TECHNIQUE: Single frontal view of the chest is obtained. FINDINGS: There is no new suspicious focal air space opacity, pleural effusion, or pneumothorax seen . The cardiac silhouette size is stable and upper limits of normal. Overlying EKG leads redemonstra hoa. The osseous structures are intact. IMPRESSION: No acute process. No significant change from prior.
[2020-11-14 12:49] LABS: ALT 31 U/L (4-49); AST 27 U/L (17-59); African American GFR (CKD) >90 (>60 ml/min/1.73 sqM); Albumin 4.4 g/dL (3.5-5.0); Alkaline Phosphatase 93 U/L (38-126); Anion Gap 18 mmol/L; Blood Urea Nitrogen 18 mg/dL (9-20); Calcium 9.8 mg/dL (8.4-10.2); Carbon Dioxide 22 mmol/L (22-30); Chloride 93 mmol/L (98-107); Glucose 144 mg/dL (74-99); Non-African American GFR(CKD) >90 (>60 ml/min/1.73 sqM); Potassium 3.9 mmol/L (3.5-5.1); Sodium 133 mmol/L (137-145)
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
[2020-11-14 13:03] LABS: INR 1.1 (<1.2); Partial Thromboplastin Time 25.1 sec (22.0-30.0); Prothrombin Time 11.3 sec (9.0-12.0)
[2020-11-14] MEDS ORDERED: HYDROmorphone 0.5 MG/0.5 ML SYRINGE IVP STA ×2 (13:15→14:26)
[2020-11-14 13:34] VITALS: BP 162/87; PULSE 79
[2020-11-14] MEDS ORDERED: niCARdipine 20 MG in SODIUM CHLORIDE 0.9% 192 ML IV SCH (14:00)
== END 2020-11-14 14:46 | disposition other institution (70) ==
LOC: EC 11:57
DX: I62.00 Nontraumatic subdural hemorrhage, unspecified (principal); F41.9 Anxiety disorder, unspecified; F32.9 Major depressive disorder, single episode, unspecified; E11.9 Type 2 diabetes mellitus without complications; E78.5 Hyperlipidemia, unspecified; I10 Essential (primary) hypertension; E07.9 Disorder of thyroid, unspecified; G89.29 Other chronic pain; M54.9 Dorsalgia, unspecified; Z88.2 Allergy status to sulfonamides; Z79.1 Long term (current) use of non-steroidal anti-inflammatories (NSAID); Z79.890 Hormone replacement therapy; Z79.899 Other long term (current) drug therapy
CPT/HCPCS: 80053; 84484; 85025; 85610; 85730; 71045; 70450; 99291; 96365; 96375 ×3; 96376 ×2; 96361 ×2; J2270; J2405; J1170

== ENCOUNTER 2022-10-13 08:48 | Emergency (ER) | payer OTHER, MEDICARE ==
[2022-10-13] MEDS ORDERED: HYDROmorphone 1 MG/ML 1 ML SYRINGE IM STA (09:00)
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
--- NOTE | 2022-10-13 09:54 | XR ---
EXAMINATION TYPE: XR humerus LT DATE OF EXAM: 10/13/2022 COMPARISON: NONE HISTORY: Pain TECHNIQUE: 2 views submitted. FINDINGS: The osseous structures are intact and the joint spaces are preserved. AC joint arthropathy IMPRESSION: 1. No acute fracture or dislocation.
--- NOTE | 2022-10-13 09:55 | XR ---
EXAMINATION TYPE: XR shoulder complete LT DATE OF EXAM: 10/13/2022 COMPARISON: NONE HISTORY: TECHNIQUE: Three views are submitted. FINDINGS: The osseous structures are intact. There is no acute fracture or dislocation. The AC joint atrophic arthropathy. IMPRESSION: 1. AC joint hypertrophic arthropathy may be associated with rotator cuff disease, correlate clinicall y.
--- NOTE | 2022-10-13 09:56 | XR ---
EXAMINATION TYPE: XR chest 2V DATE OF EXAM: 10/13/2022 COMPARISON: NONE TECHNIQUE: PA and lateral views submitted. HISTORY: Pain FINDINGS: The lungs are clear and there is no pneumothorax, pleural effusion, or focal pneumonia. Hypertrophi c and degenerative changes of the spine. Heart size normal. Atherosclerotic change aorta. No overt fa ilure. IMPRESSION: 1. No acute process.
--- NOTE | 2022-10-13 09:57 | XR ---
EXAMINATION TYPE: XR thoracic spine complete DATE OF EXAM: 10/13/2022 COMPARISON: NONE HISTORY: Pain TECHNIQUE: 3 views submitted FINDINGS: Alignment is anatomic. There is no compression deformities. Hypertrophic and degenerative changes sp ine. IMPRESSION: 1. Multilevel hypertrophic and degenerative changes of the spine.
[2022-10-13] MEDS ORDERED: oxyCODONE-APAP 10-325MG 1 EACH TAB PO STA (10:14)
[2022-10-13 10:22] VITALS: BP 132/77; PULSE 66; RESP 19; TEMP 98.5
== END 2022-10-13 10:34 | disposition home or self-care (01) ==
LOC: EC 08:48
DX: S46.912A Strain of unspecified muscle, fascia and tendon at shoulder and upper arm level, left arm, initial encounter (principal); S13.4XXA Sprain of ligaments of cervical spine, initial encounter; Z86.73 Personal history of transient ischemic attack (TIA), and cerebral infarction without residual deficits; E11.9 Type 2 diabetes mellitus without complications; E78.5 Hyperlipidemia, unspecified; I10 Essential (primary) hypertension; E07.9 Disorder of thyroid, unspecified; F41.9 Anxiety disorder, unspecified; F32.A Depression, unspecified; Z87.891 Personal history of nicotine dependence; Z88.2 Allergy status to sulfonamides; Z79.890 Hormone replacement therapy; Z79.4 Long term (current) use of insulin; Z79.84 Long term (current) use of oral hypoglycemic drugs; Z79.899 Other long term (current) drug therapy; V49.40XA Driver injured in collision with unspecified motor vehicles in traffic accident, initial encounter
CPT/HCPCS: 72072; 73030; 73060; 71046; 72125; 70450; 99285; 96372; J1170